=== PATIENT | male | born 1960 | race Caucasian/White ===

== ENCOUNTER 2016-10-22 16:21 | Inpatient (IN) | payer MEDICAID ==
[~2016-10-22] VITALS: Ht 170.2 cm; Wt 74.9 kg
[~2016-10-22 16:21] MED LIST: B-COTAB41 PO; PROP1TAB66 PO; PROT40TA PO
[2016-10-22 16:41] VITALS: BP 115/64; PULSE 95; RESP 14; TEMP 98.7; O2SAT 97
[2016-10-22 16:46] VITALS: BP 115/64; PULSE 97; RESP 16; TEMP 98.7; O2SAT 98
[2016-10-22] MEDS ORDERED: SODIUM CHLOR 0.9% 1000 ML INJ 1,000 ML IV SCH (16:48)
[2016-10-22] MEDS ORDERED: PROP10TA6 PO (16:49)
[2016-10-22 16:52] VITALS: O2SAT 98
[2016-10-22] MEDS ORDERED: SODIUM CHLORIDE 0.9% FLUSH 10 ML FLUSH IVF PRN (17:00)
[2016-10-22] MEDS ORDERED: PANTOPRAZOLE INJ 80 MG in SODIUM CHLORIDE 0.9% INJ 35 ML IV ONE (17:00)
[2016-10-22] MEDS ORDERED: OCTREOTIDE INJ 500 MCG in SODIUM CHLORID 0.9% 500 ML INJ 500 ML IV SCH (17:00)
[2016-10-22] MEDS ORDERED: PANTOPRAZOLE INJ 80 MG in SODIUM CHLORIDE 0.9% INJ 100 ML IV SCH (17:00)
[2016-10-22] MEDS ORDERED: ONDANSETRON HCL 4 MG/2 ML VIAL IVP ONE (17:00)
--- NOTE | 2016-10-22 17:01 | PD ---
HPI Chief Complaint: GI Complaint Time Seen by Provider: 16:55 Travel History International Travel<30 days: No Contact w/Intl Traveler<30days: No Traveled to known affect area: No History of Present Illness HPI Patient comes in complaining of hemoptysis, hematochezia, and melena that began 2 days ago. Patient has a history of similar secondary to esophageal varices. Patient states that he was feeling weak today while at work went home home and his found him passed out laying on the bedroom floor. Patient denies any headache, neck pain, chest pain, shortness of breath, numbness or tingling anywhere, loss of bowel or bladder, fevers, or back pain. Patient states he does get intermittent stabbing pain bilateral abdominal kunz. Patient states he is in between GI doctors is waiting to being seen one help get him treatment for hepatitis C. PFSH Past Medical History Arthritis: Yes Asthma: No Autoimmune Disease: Yes (PORPHYIA) Blood Disorders: Yes (PORPHYRIA, HEMOCHROMATOSIS) Anxiety: Yes Depression: No Heart Rhythm Problems: No Cancer: No Cardiovascular Problems: Yes High Cholesterol: No Chest Pain: Yes (OCCASIONAL - WAS NOT TREATED) Congestive Heart Failure: No Cirrhosis: Yes COPD: No Cerebrovascular Accident: No Diabetes: No Diminished Hearing: No Endocrine: No Gastrointestinal Disorders: Yes GERD: Yes Genitourinary: No Headaches: Yes (OCCASIONAL ) Hepatitis: Yes (HEP C) Hiatal Hernia: No Hypertension: Yes Immune Disorder: No Implanted Vascular Access Dvce: No Kidney Stones: No Musculoskeletal: Yes (bed right knee) Neurologic: Yes Psychiatric: Yes Reproductive: No Respiratory: Yes Immunizations Current: Yes Migraines: No Myocardial Infarction: No Renal Failure: No Seizures: No Sickle Cell Disease: No Sleep Apnea: No Thyroid Disease: No Ulcer: No Past Surgical History Abdominal Surgery: Yes (HERNIA REPAIR 5 weeks ago) AICD: No Arteriovenous Shunt: No Insulin Pump: No Joint Replacement: No Pacemaker: No Other Surgery: Yes Social History Alcohol Use: Yes (OCCASIONAL) Tobacco Use: Yes (1 1/2 PPD) Substance Use: No Allergies-Medications (Allergen,Severity, Reaction): Coded Allergies: *MDRO Multi-Drug Resistant Organism (Verified Adverse Reaction, Unknown, ) Patient reports history of MRSA MRSA PCR Screen positive 11/27/14. Reported Meds & Prescriptions Reported Meds & Active Scripts Active Reported Lisinopril 2.5 Mg Tab 2.5 Mg PO DAILY Propranolol (Propranolol HCl) 10 Mg Tab 10 Mg PO DAILY Review of Systems Except as stated in HPI: all other systems reviewed are Neg Physical Exam Narrative GENERAL: Well-developed, well nourished, in no acute distress, and non-ill appearing. SKIN: Focused skin assessment warm and dry. HEAD: Atraumatic. Normocephalic. EYES: Pupils equal and round. EOMI. No scleral icterus. No injection or drainage. ENT: No nasal bleeding or discharge. Mucous membranes pink and moist. NECK: Trachea midline. No JVD. Supple. No nuclear rigidity. CARDIOVASCULAR: Regular rate and rhythm. No murmur appreciated. RESPIRATORY: No accessory muscle use. No respiratory distress. Clear to auscultation. Breath sounds equal bilaterally. GASTROINTESTINAL: Abdomen soft, non-tender, nondistended, and no guarding. Hepatic and splenic margins not palpable. Normal bowel sounds 4. No pulsatile mass. MUSCULOSKELETAL: No obvious deformities. No clubbing. No cyanosis. No edema. Full range of motion. NEUROLOGICAL: Awake and alert. No obvious cranial nerve deficits. Motor grossly within normal limits. Normal speech. PSYCHIATRIC: Appropriate mood and affect; insight and judgment normal. Data Data Last Documented VS Vital Signs Date Time Temp Pulse Resp B/P Pulse Ox O2 Delivery O2 Flow Rate FiO2 10/22/16 16:52 98 Room Air 10/22/16 16:46 98.7 97 16 115/64 Orders Complete Blood Count With Diff (10/22/16 16:48) Comprehensive Metabolic Panel (10/22/16 16:48) Lipase (10/22/16 16:48) Prothrombin Time / Inr (Pt) (10/22/16 16:48) Act Partial Throm Time (Ptt) (10/22/16 16:48) Type And Screen (10/22/16 16:48) Chest, Single Ap (10/22/16 16:48) Ecg Monitoring (10/22/16 16:48) Iv Access Insert/Monitor (10/22/16 16:48) Oximetry (10/22/16 16:48) Ondansetron Inj (Zofran Inj) (10/22/16 17:00) Sodium Chlor 0.9% 1000 Ml Inj (Ns 1000 M (10/22/16 16:48) Sodium Chloride 0.9% Flush (Ns Flush) (10/22/16 17:00) Octreotide Inj (Sandostatin Inj) (10/22/16 17:00) Pantoprazole Inj (Protonix Inj) (10/22/16 17:00) Pantoprazole Inj (Protonix Inj) (10/22/16 17:00) Electrocardiogram (10/22/16 16:51) Ct Brain W/O Iv Contrast(Rout) (10/22/16 ) Ckmb (Isoenzyme) Profile (10/22/16 17:18) Troponin I (10/22/16 17:18) Comprehensive Metabolic Panel (10/23/16 06:00) Free Thyroxine (T4) (10/23/16 06:00) Hemoglobin (Hgb) A1c (10/23/16 06:00) Magnesium (Mg) (10/23/16 06:00) Phosphorus (Po4) (10/23/16 06:00) Thyroid Stimulating Hormone (10/23/16 06:00) Complete Blood Count With Diff (10/23/16 06:00) Propranolol (Inderal) (10/23/16 09:00) Admit Order (Ed Use Only) (10/22/16 18:38) CKMB (10/22/16 16:50) CKMB% (10/22/16 16:50) Labs Laboratory Tests Test 10/22/16 16:50 White Blood Count 6.8 TH/MM3 Red Blood Count 2.78 MIL/MM3 Hemoglobin 9.0 GM/DL Hematocrit 27.3 % Mean Corpuscular Volume 98.3 FL Mean Corpuscular Hemoglobin 32.5 PG Mean Corpuscular Hemoglobin 33.0 % Concent Red Cell Distribution Width 15.1 % Platelet Count 78 TH/MM3 Mean Platelet Volume 9.0 FL Neutrophils (%) (Auto) 69.6 % Lymphocytes (%) (Auto) 15.0 % Monocytes (%) (Auto) 12.0 % Eosinophils (%) (Auto) 2.7 % Basophils (%) (Auto) 0.7 % Neutrophils # (Auto) 4.7 TH/MM3 Lymphocytes # (Auto) 1.0 TH/MM3 Monocytes # (Auto) 0.8 TH/MM3 Eosinophils # (Auto) 0.2 TH/MM3 Basophils # (Auto) 0.0 TH/MM3 CBC Comment AUTO DIFF Differential Comment AUTO DIFF CONFIRMED Prothrombin Time 13.6 SEC Prothromb Time International 1.2 RATIO Ratio Activated Partial 25.4 SEC Thromboplast Time Sodium Level 139 MEQ/L Potassium Level 3.6 MEQ/L Chloride Level 110 MEQ/L Carbon Dioxide Level 26.2 MEQ/L Anion Gap 3 MEQ/L Blood Urea Nitrogen 14 MG/DL Creatinine 0.76 MG/DL Estimat Glomerular Filtration 106 ML/MIN Rate Random Glucose 136 MG/DL Calcium Level 6.9 MG/DL Protein Corrected Calcium 7.6 MG/DL Total Bilirubin 0.8 MG/DL Aspartate Amino Transf 44 U/L (AST/SGOT) Alanine Aminotransferase 42 U/L (ALT/SGPT) Alkaline Phosphatase 59 U/L Total Creatine Kinase 115 U/L Creatine Kinase MB 0.6 NG/ML Troponin I LESS THAN 0.02 NG/ML Total Protein 5.8 GM/DL Albumin 2.1 GM/DL Lipase 285 U/L Blood Type B POSITIVE Antibody Screen NEGATIVE MDM Medical Decision Making Medical Screen Exam Complete: Yes Emergency Medical Condition: Yes Interpretation(s) Chest x-ray read by the radiologist shows: No acute cardiopulmonary findings. CT head read by the radiologist shows: No acute intracranial abnormality. EKG reviewed by Dr. Rodas shows sinus rhythm with a ventricular rate of 86. No STEMI. Differential Diagnosis Upper GI bleed, lower GI bleed, anemia, electrolyte abnormality, closed head injury, intracranial hemorrhage, other Narrative Course Patient was seen and examined. IV was established patient was placed on music leader. Initial laboratory and radiological studies were obtained and reviewed. Patient was started on Protonix drip and given a dose of octreotide. Discussed patient with Dr. Rodas, who is in agreement with plan of care and disposition. Discussed all findings and plan care with patient who is agreeable for admission. All questions were answered. Patient remained stable throughout ED course. Discussed patient with hospitalist who is agreeable to admit the patient. HemaPrompt Point of Care Internal Pos. & Neg. Controls: Passed Fecal Specimen Occult Blood: Positive Comment Verbal consent was obtained. Digital rectal exam was performed. Stool specimen applied and test interpreted between 1 and 3 minutes of application and the result was positive. Internal Controls: Both positive and negative controls were validated. nitrating acid mixer Rebeca was present during this exam. Physician Communication Physician Communication [id number] Wang, who is agreeable to admit the patient. Diagnosis Primary Impression: GI bleed Qualified Code: K92.2 - Gastrointestinal hemorrhage, unspecified gastrointestinal hemorrhage type Additional Impression: Syncope Qualified Code: R55 - Syncope, unspecified syncope type Admitting Information Admitting Physician Requests: Admit Condition: Stable Bijan Adam Oct 22, 2016 17:01
--- NOTE | 2016-10-22 17:15 | RADRPT ---
EXAM DATE/TIME: 10/22/2016 17:02 [facility] COMPARISON: CHEST SINGLE AP, November 28, 2013, 19:39. INDICATIONS : Vomiting, internal bleeding. MEDICAL HISTORY : None. SURGICAL HISTORY : None. ENCOUNTER: Initial ACUITY: 1 day PAIN SCORE: 2/10 LOCATION: Bilateral chest FINDINGS: A single view of the chest demonstrates the lungs to be symmetrically aerated without evidence of mas s, infiltrate or effusion. The cardiomediastinal contours are unremarkable. Osseous structures are intact. CONCLUSION: 1. No acute cardiopulmonary findings. Germain Nolasco MD on October 22, 2016 at 17:13 Board Certified Radiologist. This report was verified electronically.
[2016-10-22 17:23] LABS: AUTOMATED NEUTROPHIL # 4.7 TH/MM3 (1.8-7.7); BASOPHIL % 0.7 % (0.0-2.0); EOSINOPHIL # 0.2 TH/MM3 (0-0.4); EOSINOPHIL % 2.7 % (0.0-4.0); HEMATOCRIT 27.3 % (39.0-51.0); MEAN CELL VOLUME 98.3 FL (80.0-100.0); MEAN CORPUSCULAR HEMOGLOBIN 32.5 PG (27.0-34.0); NEUT % 69.6 % (16.0-70.0); RED BLOOD COUNT 2.78 MIL/MM3 (4.50-5.90); RED CELL DISTRIBUTION WIDTH 15.1 % (11.6-17.2); WHITE BLOOD COUNT 6.8 TH/MM3 (4.0-11.0)
[2016-10-22 17:28] LABS: APTT (PATIENT) 25.4 SEC (24.3-30.1); INTERNATIONAL NORMALIZED RATIO 1.2 RATIO; PROTHROMBIN TIME - PATIENT 13.6 SEC (9.8-11.6)
--- NOTE | 2016-10-22 17:33 | RADRPT ---
EXAM DATE/TIME: 10/22/2016 17:24 [facility] COMPARISON: CT BRAIN W/O CONTRAST, December 23, 2009, 14:24. INDICATIONS : Dizziness past 3 days. RADIATION DOSE: 48.72 CTDIvol (mGy) MEDICAL HISTORY : Cardiovascular disease. Hypertension. Hepatitis C.Cirrhosis SURGICAL HISTORY : None. ENCOUNTER: Initial ACUITY: 3 days PAIN SCALE: 0/10 LOCATION: cranial TECHNIQUE: Multiple contiguous axial images were obtained of the head. Using automated exposure control and adj ustment of the mA and/or kV according to patient size, radiation dose was kept as low as reasonably a chievable to obtain optimal diagnostic quality images. DICOM format image data is available electro nically for review and comparison. FINDINGS: CEREBRUM: The ventricles are normal for age. No evidence of midline shift, mass lesion, hemorrhage or acute in farction. No extra-axial fluid collections are seen. POSTERIOR FOSSA: The cerebellum and brainstem are intact. The 4th ventricle is midline. The cerebellopontine angle i s unremarkable. EXTRACRANIAL: The visualized portion of the orbits is intact. SKULL: The calvaria is intact. No evidence of skull fracture. CONCLUSION: 1. No acute intracranial abnormality. Germain Nolasco MD on October 22, 2016 at 17:31 Board Certified Radiologist. This report was verified electronically.
[2016-10-22 17:34] LABS: HEMO FLAGS AUTO DIFF
[2016-10-22 17:41] LABS: BICARBONATE 26.2 MEQ/L (21.0-32.0); CALCIUM-PROTEIN CORRECTED 7.6 MG/DL (8.5-10.1); POTASSIUM 3.6 MEQ/L (3.5-5.1); TOTAL BILIRUBIN ADULT 0.8 MG/DL (0.2-1.0)
[2016-10-22 18:11] LABS: PLATELET COUNT 78 TH/MM3 (150-450)
[2016-10-22 18:12] LABS: SCAN/DIFF AUTO DIFF CONFIRMED
[2016-10-22] MEDS ORDERED: LISI2.5T3 PO (18:30)
[2016-10-22] MEDS ORDERED: LORazepam 2 MG/ML VIAL IV PUSH PRN ×8 (18:45)
[2016-10-22] MEDS ORDERED: traMADol HCL 50 MG TAB PO PRN ×2 (18:45)
[2016-10-22] MEDS ORDERED: PROCHLORPERAZINE 25 MG SUPP RECTAL PRN (18:45)
[2016-10-22] MEDS ORDERED: cloNIDine HCL 0.1 MG TAB PO PRN (18:45)
[2016-10-22] MEDS ORDERED: LORazepam 1 MG TAB PO PRN ×2 (18:45)
[2016-10-22] MEDS ORDERED: THIAMINE INJ 100 MG in SODIUM CHLORIDE 0.9% INJ 100 ML IV SCH (18:45)
[2016-10-22] MEDS ORDERED: ONDANSETRON HCL 4 MG/2 ML VIAL IVP PRN (18:45)
[2016-10-22] MEDS ORDERED: METOCLOPRAMIDE HCL 10 MG/2 ML VIAL IV PUSH PRN (18:45)
[2016-10-22] MEDS ORDERED: LORazepam 2 MG TAB PO PRN ×2 (18:45)
[2016-10-22] MEDS ORDERED: MORPHINE SULFATE 4 MG/ML INJ IV PRN ×2 (18:45)
[2016-10-22] MEDS ORDERED: ACETAMINOPHEN 325 MG TAB PO PRN ×2 (18:45)
[2016-10-22] MEDS ORDERED: BISACODYL 10 MG SUPP RECTAL PRN (18:45)
[2016-10-22] MEDS ORDERED: MAGNESIUM HYDROXIDE SUSP 30 ML CUP PO PRN (18:45)
[2016-10-22] MEDS ORDERED: SODIUM CHLORIDE 0.9% FLUSH 10 ML FLUSH IV FLUSH PRN ×3 (18:45)
[2016-10-22] MEDS ORDERED: FLUMAZENIL 0.5 MG/5 ML VIAL IV PUSH PRN ×2 (18:45)
[2016-10-22] MEDS ORDERED: LACTULOSE SYRUP 20 GM/30 ML CUP PO PRN (18:45)
[2016-10-22] MEDS ORDERED: ONDANSETRON HCL 4 MG/2 ML VIAL IV PRN ×2 (18:45)
[2016-10-22] MEDS ORDERED: SENNOSIDES 8.6 MG TAB PO PRN (18:45)
[2016-10-22] MEDS ORDERED: NALOXONE HCL 0.4 MG/ML AMP IV PRN (18:45)
[2016-10-22 18:58] LABS: CREATINE KINASE 115 U/L (39-308)
[2016-10-22 19:11] LABS: CKMB 0.6 NG/ML (0.5-3.6)
--- NOTE | 2016-10-22 19:23 | HHI.HP ---
HPI Service [facility] Primary Care Physician Suraj Juárez DO Admission Diagnosis GI bleed, syncope Diagnoses: (1) GI bleed Diagnosis: Principal (2) Syncope Diagnosis: Principal (3) Thrombocytopenia Diagnosis: Principal (4) Hypocalcemia Diagnosis: Principal (5) Anemia Diagnosis: Principal (6) Alcohol abuse Diagnosis: Principal (7) Tobacco use Diagnosis: Principal Travel History International Travel<30 Days: No Contact w/Intl Traveler <30 Da: No Traveled to Known Affected Are: No History of Present Illness This is a 56-year-old male with a PMH of HTN, Anxiety, Hemochromatosis, Hepatitis C, Cirrhosis, Alcohol Abuse, h/o GI Bleed s/p Esophageal Banding and Tobacco Abuse who was brought to the ER by EMS secondary to complaints of hematemesis with subsequent syncopal episode. Per patient has been feeling unwell x2 days w/ nausea/vomiting, today had episode of hematemesis followed by lightheadedness/dizziness and syncope. Previous admit 01/10-01/13/15 for Hematemesis, s/p EGD 01/13/[address] Miles w/ Esophageal Banding. On arrival , BP 115/64, HR 95, O2 sat 97% on RA, Afebrile. CBC essentially at baseline. Hemoglobin 9.0, previously 8.8 and 01/13/15. Platelets 78, previously 68 on 01/13. Calcium 6.9. Troponin negative. LFTs essentially unremarkable. Lipase normal. INR 1.2. CT Head with no acute findings. CXR negative. Hemoccult positive. GI Consulted by ER physician, currently on Protonix and Octreotide gtt in ER. Review of Systems Except as stated in HPI: all other systems reviewed are Neg ROS: 14 point review of systems otherwise negative. Past Family Social History Past Medical History PMH: HTN, Anxiety, Hemochromatosis, Hepatitis C, Cirrhosis, Alcohol Abuse, h/o GI Bleed s/p Esophageal Banding and Tobacco Abuse Past Surgical History PAST SURGICAL HISTORY: Hernia Repair Allergies: Coded Allergies: *MDRO Multi-Drug Resistant Organism (Verified Adverse Reaction, Unknown, ) Patient reports history of MRSA MRSA PCR Screen positive 11/27/14. Family History PAST FAMILY HISTORY: Reviewed. No h/o DM or CAD Social History PAST SOCIAL HISTORY: Occasional alcohol. Smokes 1-2ppd. Negative for drugs. Physical Exam Vital Signs Vital Signs Date Time Temp Pulse Resp B/P Pulse Ox O2 Delivery O2 Flow Rate FiO2 10/22/16 16:52 98 Room Air 10/22/16 16:46 98.7 97 16 115/64 98 Room Air 10/22/16 16:41 98.7 95 14 115/64 97 Physical Exam PE: GENERAL: Middle-aged male in no acute distress. HEENT: PERRLA, EOMI. No scleral icterus or conjunctival pallor. No lid lag or facial droop. CARDIOVASCULAR: Regular rate and rhythm. No obvious murmurs to auscultation. No chest tenderness to palpation. RESPIRATORY: No obvious rhonchi or wheezing. Clear to auscultation. Breath sounds equal bilaterally. GASTROINTESTINAL: Abdomen soft, non-tender, nondistended. BS normal. MUSCULOSKELETAL: Extremities without clubbing, cyanosis, or edema. No obvious deformities. NEUROLOGICAL: Awake, alert and oriented x4. No focal neurologic deficits. Moving both upper and lower extremities spontaneously. Laboratory Laboratory Tests Test 10/22/16 16:50 White Blood Count 6.8 Red Blood Count 2.78 Hemoglobin 9.0 Hematocrit 27.3 Mean Corpuscular Volume 98.3 Mean Corpuscular Hemoglobin 32.5 Mean Corpuscular Hemoglobin 33.0 Concent Red Cell Distribution Width 15.1 Platelet Count 78 Mean Platelet Volume 9.0 Neutrophils (%) (Auto) 69.6 Lymphocytes (%) (Auto) 15.0 Monocytes (%) (Auto) 12.0 Eosinophils (%) (Auto) 2.7 Basophils (%) (Auto) 0.7 Neutrophils # (Auto) 4.7 Lymphocytes # (Auto) 1.0 Monocytes # (Auto) 0.8 Eosinophils # (Auto) 0.2 Basophils # (Auto) 0.0 CBC Comment AUTO DIFF Differential Comment AUTO DIFF CONFIRMED Prothrombin Time 13.6 Prothromb Time International 1.2 Ratio Activated Partial 25.4 Thromboplast Time Sodium Level 139 Potassium Level 3.6 Chloride Level 110 Carbon Dioxide Level 26.2 Anion Gap 3 Blood Urea Nitrogen 14 Creatinine 0.76 Estimat Glomerular Filtration 106 Rate Random Glucose 136 Calcium Level 6.9 Protein Corrected Calcium 7.6 Total Bilirubin 0.8 Aspartate Amino Transf 44 (AST/SGOT) Alanine Aminotransferase 42 (ALT/SGPT) Alkaline Phosphatase 59 Total Creatine Kinase 115 Creatine Kinase MB 0.6 Troponin I LESS THAN 0.02 Total Protein 5.8 Albumin 2.1 Lipase 285 Blood Type B POSITIVE Antibody Screen NEGATIVE Result Diagram: 10/22/16164910/22/161649 Assessment and Plan Problem List: (1) GI bleed ICD Code: K92.2 Status: Acute (2) Syncope ICD Code: R55 Status: Acute (3) Thrombocytopenia ICD Code: D69.6 Status: Chronic (4) Anemia ICD Code: D64.9 Status: Acute (5) Hypocalcemia ICD Code: E83.51 Status: Acute (6) Alcohol abuse ICD Code: F10.10 Status: Acute (7) Tobacco use ICD Code: Z72.0 Status: Chronic Assessment and Plan A/P: 1. GI Bleed: h/o Hep C, Alcohol Abuse, Cirrhosis and Esophageal Varices w/ previous banding 01/13/15, reports multiple episodes of hematemesis, +Hemoccult on exam. Hgb stable at 9.0, vitals normal. Currently on Octreotide/Protonix gtt in ER, GI Consulted by ER physician, will eval. Check Hgb/Hct, transfuse as needed. 2. Anemia: Hgb 9.0, stable in comparison to previous labs from 01/2015. Recheck Hgb/Hct and transfuse as needed. 3. Thrombocytopenia: Stable. Platelets 78, previously 68 on 01/13/15. Will monitor. 4. Syncope: Likely vasovagal following hematemesis. CT Head w/ no acute findings, CXR negative, images reviewed by me. Trop negative, EKG w/ no acute ischemia. Will monitor, IVF for hydration. 5. Hypocalcemia: Ca 6.9, will replace and recheck in am. 6. Alcohol Abuse: CIWA, Seizure Precautions, MVT/Thiamine/Folate 7. Tobacco Abuse: Pt counselled, Ativan/NicoDerm prn. 8. DVT Prophylaxis: Pharmacologic contraindication secondary to GI Bleed 9. Social work for d/c planning as needed. 10. Case discussed w/ ER physician at length. Physician Certification 2 Midnight Certification Type: Admission for Inpatient Services Order for Inpatient Services The services are ordered in accordance with Medicare regulations or non- Medicare payer requirements, as applicable. In the case of services not specified as inpatient-only, they are appropriately provided as inpatient services in accordance with the 2-midnight benchmark. Estimated LOS (days): 2 days is the estimated time the patient will need to remain in the hospital, assuming treatment plan goals are met and no additional complications. Post-Hospital Plan: Not yet determined Problem Qualifiers (1) GI bleed: Qualified Code: K92.2 - Gastrointestinal hemorrhage, unspecified gastrointestinal hemorrhage type (2) Syncope: Qualified Code: R55 - Syncope, unspecified syncope type Catie Riley MD Oct 22, 2016 19:23
[2016-10-22] MEDS ORDERED: CALCIUM GLUCONATE 10% 1 GM/10 ML VIAL IV PUSH ONE (20:30)
[2016-10-22] MEDS ORDERED: CALCIUM GLUCONATE INJ 1 GM in SODIUM CHLORIDE 0.9% INJ 100 ML IV ONE (20:45)
[2016-10-22] MEDS ORDERED: SODIUM CHLORIDE 0.9% FLUSH 10 ML FLUSH IV FLUSH SCH ×2 (21:00)
[2016-10-22] MEDS: SODIUM CHLORIDE 0.9% FLUSH 10 ML FLUSH IV FLUSH SCH (21:44)
[2016-10-22] MEDS: cefTRIAXone INJ 1,000 MG in SODIUM CHLORIDE 0.9% INJ 100 ML IV SCH (21:44)
[2016-10-22 21:46] VITALS: BP 112/67; PULSE 87; RESP 18; O2SAT 96
[2016-10-22] MEDS: DOCUSATE SODIUM 50 MG/SENNA 8.6 MG TAB PO SCH (22:58)
[2016-10-22] MEDS: MULTIVITAMIN INJ 10 ML, FOLIC ACID INJ 1 MG in SODIUM CHLORID 0.9% 500 ML INJ 500 ML IV SCH (22:59)
[2016-10-22] MEDS: THIAMINE INJ 500 MG in SODIUM CHLOR 0.9% 250 ML INJ 250 ML IV SCH (22:59)
[2016-10-22] MEDS: SODIUM CHLOR 0.9% 1000 ML INJ 1,000 ML IV SCH (22:59)
[2016-10-22 23:10] VITALS: PULSE 89
[2016-10-22 23:52] VITALS: BP 116/68; PULSE 85; RESP 16; TEMP 99; O2SAT 97
[2016-10-23] VITALS (8 sets, daily range): BP systolic 115–154; BP diastolic 68–82; PULSE 55–94; RESP 16–18; TEMP 95.9–98.1; O2SAT 96–100
[2016-10-23 00:07] LABS: HEMATOCRIT 23.6 % (39.0-51.0)
[2016-10-23 00:11] LABS: REVIEW FLAG FINAL
[2016-10-23 00:31] LABS: CREATINE KINASE 124 U/L (39-308)
[2016-10-23] MEDS: PANTOPRAZOLE INJ 80 MG in SODIUM CHLORIDE 0.9% INJ 100 ML IV SCH ×2 (03:32→12:24)
[2016-10-23] MEDS: SODIUM CHLOR 0.9% 1000 ML INJ 1,000 ML IV SCH ×2 (03:33→21:44)
[2016-10-23] MEDS: OCTREOTIDE INJ 500 MCG in SODIUM CHLORID 0.9% 500 ML INJ 499.5 ML IV SCH (03:33)
[2016-10-23] MEDS: THIAMINE INJ 500 MG in SODIUM CHLOR 0.9% 250 ML INJ 250 ML IV SCH ×3 (03:54→21:42)
[2016-10-23 06:27] LABS: AUTOMATED NEUTROPHIL # 3.7 TH/MM3 (1.8-7.7); BASOPHIL % 0.6 % (0.0-2.0); EOSINOPHIL # 0.2 TH/MM3 (0-0.4); EOSINOPHIL % 3.9 % (0.0-4.0); LYMPHOCYTE # 1.2 TH/MM3 (1.0-4.8); MEAN CELL VOLUME 97.6 FL (80.0-100.0); MEAN CORPUSCULAR HEMOGLOBIN 32.9 PG (27.0-34.0); MEAN CORPUSCULAR HGB CONC 33.7 % (32.0-36.0); MONO % 9.8 % (0.0-8.0); NEUT % 64.7 % (16.0-70.0); PLATELET COUNT 59 TH/MM3 (150-450); RED BLOOD COUNT 2.36 MIL/MM3 (4.50-5.90); RED CELL DISTRIBUTION WIDTH 14.8 % (11.6-17.2); WHITE BLOOD COUNT 5.8 TH/MM3 (4.0-11.0)
[2016-10-23 06:37] LABS: HEMO FLAGS AUTO DIFF; INTERNATIONAL NORMALIZED RATIO 1.2 RATIO; PROTHROMBIN TIME - PATIENT 13.1 SEC (9.8-11.6)
[2016-10-23 06:56] LABS: ALT (GPT) 40 U/L (12-78); AST (GOT) 46 U/L (15-37); MAGNESIUM 1.8 MG/DL (1.5-2.5)
[2016-10-23 07:05] LABS: ALKALINE PHOSPHATASE 52 U/L (45-117); CREATINE KINASE 153 U/L (39-308); FREE T4 1.04 NG/DL (0.76-1.46); INDIRECT BILIRUBIN 0.5 MG/DL (0.0-0.8)
[2016-10-23] MEDS: PROPRANOLOL HCL 10 MG TAB PO SCH (07:55)
[2016-10-23] MEDS: DOCUSATE SODIUM 50 MG/SENNA 8.6 MG TAB PO SCH ×2 (07:57→21:47)
[2016-10-23] MEDS: SODIUM CHLORIDE 0.9% FLUSH 10 ML FLUSH IV FLUSH SCH ×2 (07:57→21:47)
[2016-10-23 08:18] LABS: PLATELET ESTIMATE SMEAR LOW (NORMAL); PLATELET MORPHOLOGY NORMAL (NORMAL); SCAN/DIFF AUTO DIFF CONFIRMED
--- NOTE | 2016-10-23 10:57 | PD.CONS ---
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 He reports that he started having hematemesis on Tuesday, vomiting a small amount of red blood. He reports that he also had a couple episodes and 1 episode on Tuesday and therefore came to the ER for further evaluation. He denies any abdominal pain or heartburn/reflux. He does report that he started having black tarry stools yesterday. He drinks alcohol occasionally and states that he did have 3 beers on Tuesday. He does not take any aspirin, ibuprofen or other NSAIDs. He was diagnosed with liver cirrhosis about 3-4 years ago and reports that he has never had treatment for his hepatitis C. He last had an endoscopy with band ligation (01/13/15) and this revealed medium esophageal varices distal esophagus, portal hypertensive gastropathy was found in the entire examined stomach, retroflex views revealed small extension of esophageal varices and of the cardia and fundus. The plan was for repeat EGD with banding in 4 weeks. He is not on any PPIs, but does take propranolol at home. (Janay Pearson) PFSH Past Medical History HTN Anxiety Hemochromatosis Hepatitis C, Tx naive Liver Cirrhosis Alcohol Abuse Hx GIB Esophageal varices Portal gastropathy Past Surgical History EGD Hernia Repair (Janay Pearson) Coded Allergies: *MDRO Multi-Drug Resistant Organism (Verified Adverse Reaction, Unknown, ) Patient reports history of MRSA MRSA PCR Screen positive 11/27/14. Medications Allergies Coded Allergies Type Severity Reaction Last Updated Verified *MDRO Multi-Drug Resistant Organism Adverse Reaction Unknown 10/22/16 Yes Active Scripts Medications Dose Route/Sig Days Date Category Lisinopril 2.5 Mg Tab 2.5 Mg PO DAILY 10/22/16 Reported Propranolol (Propranolol HCl) 10 Mg Tab 10 Mg PO DAILY 10/22/16 Reported Family History Mother had breast cancer. Social History Occasional alcohol- did have 3 beers on Tuesday Smokes 1.5 PPD No illicit drug use (Janay Pearson) Review of Systems Constitutional: COMPLAINS OF: Fatigue, DENIES: Fever, Weight loss, Chills Respiratory: COMPLAINS OF: Cough, Wheezing, Sputum production Cardiovascular: DENIES: Chest pain Gastrointestinal: COMPLAINS OF: Black stools, Nausea, Vomiting, Hematemesis, DENIES: Abdominal pain, Bloody stools, Constipation, Diarrhea, Anorexia, Heartburn Integumentary: DENIES: Abnormal pigmentation, Rash Hematologic/lymphatic: COMPLAINS OF: Bruising Neurologic: DENIES: Headache Psychiatric: DENIES: Confusion (PearsonJanay) GI Exam Vitals I&O Vital Signs Date Time Temp Pulse Resp B/P Pulse Ox O2 Delivery O2 Flow Rate FiO2 10/23/16 08:00 98.1 71 18 115/68 100 10/23/16 04:00 98.0 94 16 121/76 96 10/22/16 23:52 99.0 85 16 116/68 97 10/22/16 23:10 89 10/22/16 21:46 87 18 112/67 96 Room Air 10/22/16 16:52 98 Room Air 10/22/16 16:46 98.7 97 16 115/64 98 Room Air 10/22/16 16:41 98.7 95 14 115/64 97 I/O 10/22/16 10/22/16 10/22/16 10/23/16 10/23/16 10/23/16 06:59 14:59 22:59 06:59 14:59 22:59 Intake Total 2182 ml Balance 2182 ml Intake Oral 0 ml IV Total 2182 ml # Voids 1 # Bowel Movements 1 Imaging Last Impressions Chest X-Ray 10/22/16 1648 Signed Impressions: Service Date/Time: Saturday, October 22, 2016 17:02 - CONCLUSION: 1. No acute cardiopulmonary findings. Germain Nolasco MD Head CT 10/22/16 0000 Signed Impressions: Service Date/Time: Saturday, October 22, 2016 17:24 - CONCLUSION: 1. No acute intracranial abnormality. Germain Nolasco MD Laboratory Test 10/22/16 10/22/16 10/22/16 10/23/16 16:50 22:15 23:56 05:52 White Blood Count 6.8 TH/MM3 5.8 TH/MM3 Red Blood Count 2.78 MIL/MM3 2.36 MIL/MM3 Hemoglobin 9.0 GM/DL 7.8 GM/DL 7.7 GM/DL Hematocrit 27.3 % 23.6 % 23.0 % Mean Corpuscular Volume 98.3 FL 97.6 FL Mean Corpuscular Hemoglobin 32.5 PG 32.9 PG Mean Corpuscular Hemoglobin 33.0 % 33.7 % Concent Red Cell Distribution Width 15.1 % 14.8 % Platelet Count 78 TH/MM3 59 TH/MM3 Mean Platelet Volume 9.0 FL 9.3 FL Neutrophils (%) (Auto) 69.6 % 64.7 % Lymphocytes (%) (Auto) 15.0 % 21.0 % Monocytes (%) (Auto) 12.0 % 9.8 % Eosinophils (%) (Auto) 2.7 % 3.9 % Basophils (%) (Auto) 0.7 % 0.6 % Neutrophils # (Auto) 4.7 TH/MM3 3.7 TH/MM3 Lymphocytes # (Auto) 1.0 TH/MM3 1.2 TH/MM3 Monocytes # (Auto) 0.8 TH/MM3 0.6 TH/MM3 Eosinophils # (Auto) 0.2 TH/MM3 0.2 TH/MM3 Basophils # (Auto) 0.0 TH/MM3 0.0 TH/MM3 CBC Comment AUTO DIFF AUTO DIFF Differential Comment AUTO DIFF AUTO DIFF CONFIRMED CONFIRMED Prothrombin Time 13.6 SEC 13.1 SEC Prothromb Time International 1.2 RATIO 1.2 RATIO Ratio Activated Partial 25.4 SEC Thromboplast Time Sodium Level 139 MEQ/L Potassium Level 3.6 MEQ/L Chloride Level 110 MEQ/L Carbon Dioxide Level 26.2 MEQ/L Anion Gap 3 MEQ/L Blood Urea Nitrogen 14 MG/DL Creatinine 0.76 MG/DL Estimat Glomerular Filtration 106 ML/MIN Rate Random Glucose 136 MG/DL Calcium Level 6.9 MG/DL Protein Corrected Calcium 7.6 MG/DL Total Bilirubin 0.8 MG/DL 1.0 MG/DL Aspartate Amino Transf 44 U/L 46 U/L (AST/SGOT) Alanine Aminotransferase 42 U/L 40 U/L (ALT/SGPT) Alkaline Phosphatase 59 U/L 52 U/L Total Creatine Kinase 115 U/L 124 U/L 153 U/L Creatine Kinase MB 0.6 NG/ML Troponin I LESS THAN 0.02 LESS THAN 0.02 LESS THAN 0.02 NG/ML NG/ML NG/ML Total Protein 5.8 GM/DL 5.6 GM/DL Albumin 2.1 GM/DL 2.2 GM/DL Lipase 285 U/L Blood Type B POSITIVE Antibody Screen NEGATIVE Urine Opiates Screen NEG Urine Barbiturates Screen NEG Urine Amphetamines Screen NEG Urine Benzodiazepines Screen NEG Urine Cocaine Screen NEG Urine Cannabinoids Screen NEG Platelet Estimate LOW Platelet Morphology Comment NORMAL Red Cell Morphology Comment NORMAL Fibrinogen 121 mg/dL Phosphorus Level 2.3 MG/DL Magnesium Level 1.8 MG/DL Direct Bilirubin 0.5 MG/DL Indirect Bilirubin 0.5 MG/DL Free Thyroxine 1.04 NG/DL Thyroid Stimulating Hormone 0.328 uIU/ML 3rd Gen Physical Examination HEENT: Normocephalic; atraumatic; no jaundice. CHEST: CTA, Expiratory wheezing, cough CARDIAC: RRR. ABDOMEN: Soft, nondistended, nontender; no hepatosplenomegaly; bowel sounds are present in all four quadrants. EXTREMITIES: No clubbing, cyanosis, or edema. SKIN: Normal; no rash; no jaundice. 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 (Janay Pearson) Assessment and Plan Plan ASSESSMENT: - Upper GIB with hematemesis. Has been having intermittent hematemesis since Tuesday. Has hx of GIB r/t esophageal varices. Last EGD with band ligation ( 01/13/15)---> this revealed medium esophageal varices distal esophagus, portal hypertensive gastropathy was found in the entire examined stomach, retroflex views revealed small extension of esophageal varices and of the cardia and fundus. The plan was for repeat EGD with banding in 4 weeks. He is not on any PPIs, but does take propranolol at home. HH dropped from 9.0/27.3----> 7.7/23.0. NPO. Protonix/Octreotide Gtt. Plan for egd with possible band ligation today. - Anemia secondary to acute blood loss. 9.0/27.3----> 7.7/23.0. - Esophageal varices, portal gastropathy. Protonix gtt, Octreotide. Propranolol, rate 71 - Liver cirrhosis secondary to ETOH, Hemochromatosis, HCV. Dx 3-4 years ago. States he drinks occasionally, did have 3 beers on Tuesday. T. Bili 1.0, AST 46 , ALT 40, Alk phosph 153. - Hemochromatosis. Ferritin level, Iron studies. - Chronic hepatitis C, Tx naive. Still drinking ETOH. Not a candidate for tx until he has been ETOH free x 6 months. - Wheezing, coughing. Pt reports hx of COPD per attending - HTN, Anxiety per attending. PLAN: - Plan for EGD with possible band ligation - Obtain consents - NPO - Protonix Gtt - Octreotide Gtt - Propranolol - Ferritin - Iron studies - CBC, BMP in am - Complete ETOH cessation - Further recommendations to follow based on results of above - Pt seen and examined by Dr. Glasgow and myself and this note is written on his behalf (Janay Pearson) Physician Comments Seen and examined, plan discussed with the patient and his . Risk, benefits and possible complications discussed with the patient, will proceed with EGD / banding today. Management plan otherwise as above. Further recommendations to follow. (Dionisio Glasgow MD) Janay Pearson Oct 23, 2016 10:57 Dionisio Glasgow MD Oct 23, 2016 11:54
[2016-10-23] MEDS ORDERED: RESP: ALBUTEROL 2.5 MG/IPRATROPIUM 0.5 MG NEB (SCH) NEB ONE (12:00)
[2016-10-23 12:17] LABS: TRANSFERRIN IRON PROFILE 241 MG/DL (200-360)
[2016-10-23 12:20] LABS: FERRITIN 22 NG/ML (26-388)
[2016-10-23 13:54] LABS: HEMOGLOBIN A1b 0.6 %; HEMOGLOBIN Ao 85.9 %; HEMOGLOBIN F 1.3 %; HEMOGLOBIN LA1C 1.8 %; HEMOGLOBIN P3 3.2 %
[2016-10-23] MEDS ORDERED: PROPOFOL 200 MG/20 ML AMP IV ONE (14:54)
[2016-10-23] MEDS ORDERED: DO NOT ADM ANY ANTICOAGULANT DRUGS PRN ×2 (15:11→16:30)
--- NOTE | 2016-10-23 15:48 | EKG ---
Date Performed: 10/22/2016 Time Performed: 17:42:51 PTAGE: 56 years EKG: Sinus rhythm WITH SHORT NM INTERVAL Compared to prior tracing no significant change BORDERLINE ECG PREVIOUS TRACING : 10/22/2016 17.42 DOCTOR: Osmin Bustillo Interpretating Date/Time 10/25/2016 07:55:42
--- NOTE | 2016-10-23 19:24 | HHI.PR ---
Subjective Remarks tolerated EGD well, denies n/v afterwards. Objective Vital Signs Date Time Temp Pulse Resp B/P Pulse Ox O2 Delivery O2 Flow Rate FiO2 10/23/16 16:00 96.7 55 18 135/74 98 10/23/16 15:40 97.3 57 14 125/67 100 Nasal Cannula 2 10/23/16 15:30 53 14 112/64 100 Nasal Cannula 2 10/23/16 15:15 58 14 92/58 100 Nasal Cannula 4 10/23/16 15:12 97.3 59 14 98/60 99 Nasal Cannula 4 10/23/16 12:31 98 21 10/23/16 12:11 95.9 68 18 126/72 99 10/23/16 08:00 98.1 71 18 115/68 100 10/23/16 07:35 71 10/23/16 04:00 98.0 94 16 121/76 96 10/22/16 23:52 99.0 85 16 116/68 97 10/22/16 23:10 89 10/22/16 21:46 87 18 112/67 96 Room Air I/O 10/22/16 10/22/16 10/22/16 10/23/16 10/23/16 10/23/16 07:00 15:00 23:00 07:00 15:00 23:00 Intake Total 2182 ml 300 ml Output Total 1600 ml Balance 2182 ml -1600 ml 300 ml Intake Oral 0 ml IV Total 2182 ml Other 300 ml Output Urine Total 1600 ml # Voids 1 # Bowel Movements 1 Result Diagram: 10/23/16 0552 10/22/16 1650 Objective Remarks GENERAL: NAD, sleeping in bed, easily awoken CARDIOVASCULAR: Regular rate and rhythm without murmurs, gallops, or rubs. RESPIRATORY: Breath sounds equal and clear bilaterally. Unlabored breathing GASTROINTESTINAL: Abdomen soft, non-tender, nondistended. MUSCULOSKELETAL: No cyanosis, or edema. A/P Assessment and Plan A/P - Upper GI bleed likely 2/2 varices - stable post EGD today, awaiting results/ report. protonix and octretide drips, propranolol - appreciate GI assistance - Anemia secondary to acute blood loss. 9.0/27.3----> 7.7/23.0. Will need to repeat in AM to ensure for stabilization - Esophageal varices, portal gastropathy. - Liver cirrhosis secondary to ETOH, Hemochromatosis, HCV. - Hemochromatosis. Ferritin level, Iron studies. - Chronic hepatitis C, Tx naive. - ETOH dependence - will start librium - HTN, Surya Montero MD Oct 23, 2016 19:24
[2016-10-23 20:44] LABS: HEMATOCRIT 24.4 % (39.0-51.0)
[2016-10-23 20:58] LABS: REVIEW FLAG FINAL
[2016-10-23] MEDS: cefTRIAXone INJ 1,000 MG in SODIUM CHLORIDE 0.9% INJ 100 ML IV SCH (21:46)
[2016-10-23] MEDS: MULTIVITAMIN INJ 10 ML, FOLIC ACID INJ 1 MG in SODIUM CHLORID 0.9% 500 ML INJ 500 ML IV SCH (21:46)
[2016-10-24] VITALS (8 sets, daily range): BP systolic 107–156; BP diastolic 60–84; PULSE 61–80; RESP 18–20; TEMP 96.1–99.4; O2SAT 94–99
[2016-10-24] MEDS: OCTREOTIDE INJ 500 MCG in SODIUM CHLORID 0.9% 500 ML INJ 499.5 ML IV SCH ×2 (01:10→20:37)
[2016-10-24] MEDS: PANTOPRAZOLE INJ 80 MG in SODIUM CHLORIDE 0.9% INJ 100 ML IV SCH ×3 (01:10→20:35)
[2016-10-24 04:37] LABS: BICARBONATE 24.7 MEQ/L (21.0-32.0); POTASSIUM 3.5 MEQ/L (3.5-5.1)
[2016-10-24] MEDS: THIAMINE INJ 500 MG in SODIUM CHLOR 0.9% 250 ML INJ 250 ML IV SCH ×2 (04:37→12:50)
[2016-10-24 05:08] LABS: AUTOMATED NEUTROPHIL # 3.9 TH/MM3 (1.8-7.7); BASOPHIL % 0.7 % (0.0-2.0); EOSINOPHIL # 0.4 TH/MM3 (0-0.4); EOSINOPHIL % 5.7 % (0.0-4.0); HEMATOCRIT 24.5 % (39.0-51.0); LYMPH % 22.1 % (9.0-44.0); LYMPHOCYTE # 1.4 TH/MM3 (1.0-4.8); MEAN CORPUSCULAR HEMOGLOBIN 32.9 PG (27.0-34.0); MEAN CORPUSCULAR HGB CONC 33.2 % (32.0-36.0); MONO % 10.8 % (0.0-8.0); NEUT % 60.7 % (16.0-70.0); PLATELET COUNT 68 TH/MM3 (150-450); RED BLOOD COUNT 2.47 MIL/MM3 (4.50-5.90); RED CELL DISTRIBUTION WIDTH 15.3 % (11.6-17.2); WHITE BLOOD COUNT 6.5 TH/MM3 (4.0-11.0)
[2016-10-24 05:10] LABS: CALCIUM-PROTEIN CORRECTED 7.9 MG/DL (8.5-10.1)
[2016-10-24 05:21] LABS: HEMO FLAGS AUTO DIFF
[2016-10-24 07:20] LABS: OVALOCYTES 1+ (NORMAL); PLATELET ESTIMATE SMEAR LOW (NORMAL); PLATELET MORPHOLOGY NORMAL (NORMAL); SCAN/DIFF AUTO DIFF CONFIRMED
[2016-10-24] MEDS: DOCUSATE SODIUM 50 MG/SENNA 8.6 MG TAB PO SCH ×2 (09:00→20:44)
[2016-10-24] MEDS: PROPRANOLOL HCL 10 MG TAB PO SCH (09:50)
[2016-10-24] MEDS: SODIUM CHLORIDE 0.9% FLUSH 10 ML FLUSH IV FLUSH SCH ×2 (09:50→20:45)
[2016-10-24] MEDS: SODIUM CHLOR 0.9% 1000 ML INJ 1,000 ML IV SCH (10:37)
--- NOTE | 2016-10-24 13:45 | HHI.GIFU ---
Subjective Remarks Doing well and tolerating liquid diet, no nausea or vomiting. and no melena. Objective Vitals I&O Vital Signs Date Time Temp Pulse Resp B/P (MAP) Pulse Ox O2 Delivery O2 Flow Rate FiO2 10/24/16 12:00 98.5 61 18 112/62 (79) 99 10/24/16 07:44 98.4 71 18 156/84 (108) 98 10/24/16 04:00 98.7 70 20 135/74 (94) 98 10/24/16 00:22 98.5 65 18 137/74 (95) 98 10/23/16 20:38 98.0 66 18 154/82 (106) 97 10/23/16 20:15 81 10/23/16 16:00 96.7 55 18 135/74 (94) 98 10/23/16 15:40 97.3 57 14 125/67 (86) 100 Nasal Cannula 2 10/23/16 15:30 53 14 112/64 (80) 100 Nasal Cannula 2 10/23/16 15:15 58 14 92/58 (69) 100 Nasal Cannula 4 10/23/16 15:12 97.3 59 14 98/60 (73) 99 Nasal Cannula 4 I/O 10/23/16 10/23/16 10/23/16 10/24/16 10/24/16 10/24/16 07:00 15:00 23:00 07:00 15:00 23:00 Intake Total 2182 ml 1399 ml 1315 ml Output Total 1600 ml 1420 ml 1800 ml Balance 2182 ml -1600 ml -21 ml -485 ml Intake Oral 0 ml IV Total 2182 ml 1099 ml 1315 ml Other 300 ml Output Urine Total 1600 ml 1420 ml 1800 ml # Voids 1 # Bowel Movements 1 0 0 Laboratory Laboratory Tests Test 10/23/16 19:35 10/24/16 02:28 Hemoglobin 8.0 8.1 Hematocrit 24.4 24.5 White Blood Count 6.5 Red Blood Count 2.47 Mean Corpuscular Volume 99.0 Mean Corpuscular Hemoglobin 32.9 Mean Corpuscular Hemoglobin Concent 33.2 Red Cell Distribution Width 15.3 Platelet Count 68 Mean Platelet Volume 9.1 Neutrophils (%) (Auto) 60.7 Lymphocytes (%) (Auto) 22.1 Monocytes (%) (Auto) 10.8 Eosinophils (%) (Auto) 5.7 Basophils (%) (Auto) 0.7 Neutrophils # (Auto) 3.9 Lymphocytes # (Auto) 1.4 Monocytes # (Auto) 0.7 Eosinophils # (Auto) 0.4 Basophils # (Auto) 0.0 CBC Comment AUTO DIFF Differential Comment AUTO DIFF CONFIRMED Platelet Estimate LOW Platelet Morphology Comment NORMAL Ovalocytes 1+ Blood Urea Nitrogen 13 Creatinine 0.66 Random Glucose 107 Total Protein 6.0 Calcium Level 7.3 Sodium Level 142 Potassium Level 3.5 Chloride Level 110 Carbon Dioxide Level 24.7 Anion Gap 7 Estimat Glomerular Filtration Rate 124 Protein Corrected Calcium 7.9 Physical Exam HEENT: Pupils round and reactive to light; normocephalic; atraumatic; no jaundice. Throat is clear. NECK: Neck is supple, no JVD, no lymphadenopathy. CHEST: Chest is clear to auscultation and percussion. CARDIAC: Regular rate and rhythm with no murmur gallop or rubs. ABDOMEN: Soft, nondistended, nontender; no hepatosplenomegaly; bowel sounds are present in all four quadrants. EXTREMITIES: No clubbing, cyanosis, or edema. Assessment and Plan Plan ASSESSMENT: - Upper GIB with hematemesis secondary to Varices, S/P banding yesterday. Has been having intermittent hematemesis since Tuesday. Has hx of GIB r/t esophageal varices. Last EGD with band ligation (01/13/15)---> this revealed medium esophageal varices distal esophagus, portal hypertensive gastropathy was found in the entire examined stomach, retroflex views revealed small extension of esophageal varices and of the cardia and fundus. The plan was for repeat EGD with banding in 4 weeks. He is not on any PPIs, but does take propranolol at home. HH dropped from 9.0/27.3----> 7.7/23.0. NPO. Protonix/Octreotide Gtt. - Anemia secondary to acute blood loss. 9.0/27.3----> 7.7/23.0. - Esophageal varices, portal gastropathy. Protonix gtt, Octreotide. Propranolol, rate 71 - Liver cirrhosis secondary to ETOH, Hemochromatosis, HCV. Dx 3-4 years ago. States he drinks occasionally, did have 3 beers on Tuesday. T. Bili 1.0, AST 46 , ALT 40, Alk phosph 153. - Hemochromatosis. Ferritin level, Iron studies. - Chronic hepatitis C, Tx naive. Still drinking ETOH. Not a candidate for tx until he has been ETOH free x 6 months. - Wheezing, coughing. Pt reports hx of COPD per attending - HTN, Anxiety per attending. PLAN: - Diet as tolerated - Protonix Gtt - Octreotide Gtt - Propranolol - CBC, BMP in am - Will need repeat EGD with possible banding in 4-8 weeks. - Complete ETOH cessation - Further recommendations to follow based on results of above Dionisio Glasgow MD Oct 24, 2016 13:45
--- NOTE | 2016-10-24 16:48 | HHI.PR ---
Subjective Remarks tolerated meals well today, no N/V/D. Objective Vital Signs Date Time Temp Pulse Resp B/P (MAP) Pulse Ox O2 Delivery O2 Flow Rate FiO2 10/24/16 16:00 98.6 64 18 107/60 (76) 99 10/24/16 12:00 98.5 61 18 112/62 (79) 99 10/24/16 07:44 98.4 71 18 156/84 (108) 98 10/24/16 04:00 98.7 70 20 135/74 (94) 98 10/24/16 00:22 98.5 65 18 137/74 (95) 98 10/23/16 20:38 98.0 66 18 154/82 (106) 97 10/23/16 20:15 81 I/O 10/23/16 10/23/16 10/23/16 10/24/16 10/24/16 10/24/16 06:59 14:59 22:59 06:59 14:59 22:59 Intake Total 2182 ml 1399 ml 1315 ml 960 ml Output Total 1600 ml 1420 ml 1800 ml 1800 ml Balance 2182 ml -1600 ml -21 ml -485 ml -840 ml Intake Oral 0 ml 960 ml IV Total 2182 ml 1099 ml 1315 ml Other 300 ml Output Urine Total 1600 ml 1420 ml 1800 ml 1800 ml # Voids 1 # Bowel Movements 1 0 0 0 Result Diagram: 10/24/1622710/24/16227 Objective Remarks GENERAL: NAD RESPIRATORY: Unlabored breathing GASTROINTESTINAL: Abdomen soft, non-tender, nondistended. No LE edema A/P Assessment and Plan A/P - Upper GI bleed likely 2/2 varices - stable post EGD w/ banding yesterday today , per GI continuing protonix and octretide drips, propranolol - Anemia secondary to acute blood loss. stable at this time, repeat steph - Esophageal varices, portal gastropathy. - Liver cirrhosis secondary to ETOH, Hemochromatosis, HCV. - Hemochromatosis. - Chronic hepatitis C, Tx naive. - ETOH dependence - librium - HTN, anticipate discharge in next 24 hrs if clear w/ GI. Surya Montero MD Oct 24, 2016 16:48
[2016-10-24] MEDS ORDERED: THIAMINE INJ 500 MG in SODIUM CHLOR 0.9% 250 ML INJ 250 ML IV SCH (20:00)
[2016-10-24] MEDS: MULTIVITAMIN INJ 10 ML, FOLIC ACID INJ 1 MG in SODIUM CHLORID 0.9% 500 ML INJ 500 ML IV SCH (20:36)
[2016-10-24] MEDS: cefTRIAXone INJ 1,000 MG in SODIUM CHLORIDE 0.9% INJ 100 ML IV SCH (21:17)
[2016-10-25 03:57] VITALS: BP 144/70; PULSE 71; RESP 18; TEMP 99; O2SAT 95
[2016-10-25] MEDS: PANTOPRAZOLE INJ 80 MG in SODIUM CHLORIDE 0.9% INJ 100 ML IV SCH ×2 (05:41→16:00)
[2016-10-25 05:53] LABS: AUTOMATED NEUTROPHIL # 4.1 TH/MM3 (1.8-7.7); BASOPHIL # 0.2 TH/MM3 (0-0.2); BASOPHIL % 2.4 % (0.0-2.0); EOSINOPHIL # 0.3 TH/MM3 (0-0.4); EOSINOPHIL % 4.9 % (0.0-4.0); HEMATOCRIT 24.1 % (39.0-51.0); LYMPH % 18.2 % (9.0-44.0); LYMPHOCYTE # 1.2 TH/MM3 (1.0-4.8); MEAN CELL VOLUME 97.6 FL (80.0-100.0); MEAN CORPUSCULAR HEMOGLOBIN 32.9 PG (27.0-34.0); MEAN CORPUSCULAR HGB CONC 33.7 % (32.0-36.0); MONO % 11.7 % (0.0-8.0); NEUT % 62.8 % (16.0-70.0); PLATELET COUNT 70 TH/MM3 (150-450); RED BLOOD COUNT 2.47 MIL/MM3 (4.50-5.90); RED CELL DISTRIBUTION WIDTH 15.8 % (11.6-17.2); WHITE BLOOD COUNT 6.5 TH/MM3 (4.0-11.0)
[2016-10-25 05:56] LABS: HEMO FLAGS AUTO DIFF
[2016-10-25 07:09] LABS: BICARBONATE 26.7 MEQ/L (21.0-32.0); POTASSIUM 3.4 MEQ/L (3.5-5.1)
[2016-10-25 07:28] LABS: PLATELET ESTIMATE SMEAR LOW (NORMAL); PLATELET MORPHOLOGY NORMAL (NORMAL); SCAN/DIFF AUTO DIFF CONFIRMED
[2016-10-25 07:39] LABS: CALCIUM-PROTEIN CORRECTED 7.6 MG/DL (8.5-10.1)
[2016-10-25 08:00] VITALS: BP 136/72; PULSE 60; RESP 17; TEMP 98.3; O2SAT 99
[2016-10-25 09:00] VITALS: PULSE 62
[2016-10-25] MEDS: SODIUM CHLORIDE 0.9% FLUSH 10 ML FLUSH IV FLUSH SCH (09:00)
[2016-10-25] MEDS: DOCUSATE SODIUM 50 MG/SENNA 8.6 MG TAB PO SCH (09:00)
[2016-10-25] MEDS: SODIUM CHLOR 0.9% 1000 ML INJ 1,000 ML IV SCH ×2 (09:05→16:37)
[2016-10-25] MEDS: PROPRANOLOL HCL 10 MG TAB PO SCH (09:05)
[2016-10-25 12:00] VITALS: BP_SYST 115; BP_SYST 144; BP_DIAS 65; BP_DIAS 75; PULSE 68; PULSE 88; RESP 18; RESP 19; TEMP 97.5; TEMP 97.8; O2SAT 97; O2SAT 99
--- NOTE | 2016-10-25 15:43 | HHI.GIFU ---
Subjective Remarks Sitting up on side of bed. No bleeding. Tolerating diet. No n/v. No abdominal pain. States he wants to go home. (Janay Pearson) Objective Vitals I&O Vital Signs Date Time Temp Pulse Resp B/P (MAP) Pulse Ox O2 Delivery O2 Flow Rate FiO2 10/25/16 12:00 97.5 68 18 115/65 (82) 99 10/25/16 09:00 62 10/25/16 08:00 98.3 60 17 136/72 (93) 99 10/25/16 03:57 99.0 71 18 144/70 (94) 95 10/24/16 23:49 99.4 70 18 126/70 (88) 99 10/24/16 20:23 99.2 70 18 112/62 (79) 96 10/24/16 20:00 68 10/24/16 16:00 98.6 64 18 107/60 (76) 99 I/O 10/24/16 10/24/16 10/24/16 10/25/16 10/25/16 10/25/16 07:00 15:00 23:00 07:00 15:00 23:00 Intake Total 1315 ml 960 ml 2329 ml 1210 ml 572 ml Output Total 1800 ml 1800 ml 1250 ml Balance -485 ml -840 ml 2329 ml -40 ml 572 ml Intake Oral 960 ml 360 ml 360 ml IV Total 1315 ml 1969 ml 850 ml 572 ml Output Urine Total 1800 ml 1800 ml 1250 ml # Voids 2 # Bowel Movements 0 0 0 1 Laboratory Laboratory Tests Test 10/25/16 05:16 White Blood Count 6.5 Red Blood Count 2.47 Hemoglobin 8.1 Hematocrit 24.1 Mean Corpuscular Volume 97.6 Mean Corpuscular Hemoglobin 32.9 Mean Corpuscular Hemoglobin Concent 33.7 Red Cell Distribution Width 15.8 Platelet Count 70 Mean Platelet Volume 9.4 Neutrophils (%) (Auto) 62.8 Lymphocytes (%) (Auto) 18.2 Monocytes (%) (Auto) 11.7 Eosinophils (%) (Auto) 4.9 Basophils (%) (Auto) 2.4 Neutrophils # (Auto) 4.1 Lymphocytes # (Auto) 1.2 Monocytes # (Auto) 0.8 Eosinophils # (Auto) 0.3 Basophils # (Auto) 0.2 CBC Comment AUTO DIFF Differential Comment AUTO DIFF CONFIRMED Platelet Estimate LOW Platelet Morphology Comment NORMAL Blood Urea Nitrogen 9 Creatinine 0.71 Random Glucose 104 Total Protein 6.2 Calcium Level 7.1 Sodium Level 142 Potassium Level 3.4 Chloride Level 109 Carbon Dioxide Level 26.7 Anion Gap 6 Estimat Glomerular Filtration Rate 114 Protein Corrected Calcium 7.6 Imaging Last Impressions Chest X-Ray 10/22/16 1648 Signed Impressions: Service Date/Time: Saturday, October 22, 2016 17:02 - CONCLUSION: 1. No acute cardiopulmonary findings. Germain Nolasco MD Head CT 10/22/16 0000 Signed Impressions: Service Date/Time: Saturday, October 22, 2016 17:24 - CONCLUSION: 1. No acute intracranial abnormality. Germain Nolasco MD Physical Exam HEENT: Normocephalic; atraumatic; no jaundice. CHEST: CTA CARDIAC: RRR ABDOMEN: Soft, nondistended, nontender; hepatosplenomegaly; bowel sounds are present in all four quadrants. EXTREMITIES: No clubbing, cyanosis, or edema. NEURO: Alert and oriented x 3 (Janay Pearson) Assessment and Plan Plan ASSESSMENT: - Upper GIB with hematemesis secondary to Varices, Has been having intermittent hematemesis since Tuesday. Has hx of GIB r/t esophageal varices. S/P EGD with band ligation (10/23/16)---> esophageal varices, grade IV, s/p banding. No active bleeding. 8.03/30.1. Protonix/Octreotide Gtt. Tolerated diet. - Anemia secondary to acute blood loss. 8.03/30.1 - Esophageal varices, portal gastropathy. Protonix gtt, Octreotide. Propranolol - Liver cirrhosis secondary to ETOH, Hemochromatosis, HCV. Dx 3-4 years ago. States he drinks occasionally, did have 3 beers on Tuesday. T. Bili 1.0, AST 46 , ALT 40, Alk phosph 153. - Hemochromatosis. Ferritin level, Iron studies. - Chronic hepatitis C, Tx naive. Still drinking ETOH. Not a candidate for tx until he has been ETOH free x 6 months. - Wheezing, coughing. Pt reports hx of COPD per attending - HTN, Anxiety per attending. PLAN: - Diet as tolerated, Low sodium - D/C protonix gtt - D/C Octreotide gtt - Protonix 40mg po BID - Cont. Propranolol - FU LIZZY 2 weeks - Complete ETOH cessation - Will need repeat EGD with possible banding in 4-8 weeks. - Pt seen and examined by Dr. Glasgow and myself and this note is written on his behalf (Janay Pearson) Physician Comments Plan as above, will advance the diet. Will follow up with you. (Dionisio Glasgow MD) Janay Pearson Oct 25, 2016 15:43 Dionisio Glasgow MD Oct 25, 2016 18:17
[2016-10-25] MEDS: OCTREOTIDE INJ 500 MCG in SODIUM CHLORID 0.9% 500 ML INJ 499.5 ML IV SCH (16:00)
--- NOTE | 2016-10-25 16:26 | HHI.DCPOC ---
Discharge Care Plan Diagnosis: (1) Anemia (2) Hematemesis (3) Esophageal varices Additional Problems stomach bleeding/esophageal bleeding Goals to Promote Your Health * To prevent worsening of your condition and complications * To maintain your health at the optimal level DO NOT TAKE NSAIDS OR TYLENOL. Directions to Meet Your Goals Take your medications as prescribed Follow your dietary instruction Follow activity as directed Keep your appointments as scheduled Take your immunizations and boosters as scheduled If your symptoms worsen call your PCP, if no PCP go to Urgent Care Center or Emergency Room Smoking is Dangerous to Your Health. Avoid second hand smoke Call the 24-hour hour crisis hotline for domestic abuse at Surya Montero MD Oct 25, 2016 16:26
[2016-10-25] MEDS ORDERED: PANT40TA3 PO (16:29)
[2016-10-25] MEDS ORDERED: PANTOPRAZOLE SOD 40 MG DELAYED RELEASE TAB PO SCH (21:00)
[2016-10-29] MEDS ORDERED: THIAMINE INJ 100 MG in SODIUM CHLORIDE 0.9% INJ 100 ML IV SCH (20:00)
--- NOTE | 2016-11-23 11:13 | HHI.DS ---
Discharge Summary Admission Date Oct 22, 2016 at 18:39 Discharge Date: Oct 25, 2016 Admitting Diagnosis GI bleed, syncope (1) GI bleed ICD Code: K92.2 - Gastrointestinal hemorrhage, unspecified Status: Acute (2) Syncope ICD Code: R55 - Syncope and collapse Status: Acute (3) Thrombocytopenia ICD Code: D69.6 - Thrombocytopenia Status: Chronic (4) Anemia ICD Code: D64.9 - Anemia, unspecified Status: Acute (5) Hypocalcemia ICD Code: E83.51 - Hypocalcemia Status: Acute (6) Alcohol abuse ICD Code: F10.10 - Alcohol abuse, uncomplicated Status: Acute (7) Tobacco use ICD Code: Z72.0 - Tobacco use Status: Chronic Procedures S/P EGD with band ligation (10/23/16)---> esophageal varices, grade IV, s/p banding. Brief History - From Admission This is a 56-year-old male with a PMH of HTN, Anxiety, Hemochromatosis, Hepatitis C, Cirrhosis, Alcohol Abuse, h/o GI Bleed s/p Esophageal Banding and Tobacco Abuse who was brought to the ER by EMS secondary to complaints of hematemesis with subsequent syncopal episode. Per patient has been feeling unwell x2 days w/ nausea/vomiting, today had episode of hematemesis followed by lightheadedness/dizziness and syncope. Previous admit 01/10-01/13/15 for Hematemesis, s/p EGD 01/13/[address] Miles w/ Esophageal Banding. On arrival , BP 115/64, HR 95, O2 sat 97% on RA, Afebrile. CBC essentially at baseline. Hemoglobin 9.0, previously 8.8 and 01/13/15. Platelets 78, previously 68 on 01/13. Calcium 6.9. Troponin negative. LFTs essentially unremarkable. Lipase normal. INR 1.2. CT Head with no acute findings. CXR negative. Hemoccult positive. GI Consulted by ER physician, currently on Protonix and Octreotide gtt in ER. PE at Discharge No acute distress, unlabored breathing Abdomen is soft, nontender, positive bowel sounds, nondistended Hospital Course Patient was admitted, started on Protonix and octreotide drips. Underwent EGD with findings of grade 4 esophageal varices, underwent banding. Tolerated procedure well and the patient's blood counts remained stable. Patient was tolerating by mouth intake well with no further episodes of melena or bright red blood per rectum. Patient met maximum benefit from hospitalization and was deemed clinically stable for discharge. Pt was extensively counseled on avoiding alcohol and avoiding all NSAID medication. Pt Condition on Discharge: Stable Discharge Disposition: Discharge Home Discharge Time: <= 30 minutes Discharge Instructions DIET: Follow Instructions for: Heart Healthy Diet Activities you can perform: See Additionl Instruction Other Activity Instructions: AVOID DRINKING; DO NOT TAKE NSAIDS INCLUDING but not limited to Advil, aspirin, Aleve, naproxen, ibuprofen. aVOID TYLENOL IF POSSIBLE. Follow up Referrals: [facility] - 2 Weeks with Dionisio Glasgow MD PCP Follow-up - 1 Week New Medications: Pantoprazole (Pantoprazole) 40 Mg Tab 40 MG PO Q12HR for Prevent Stress Ulcers, #60 TAB Continued Medications: Lisinopril (Lisinopril) 2.5 Mg Tab 2.5 MG PO DAILY, #30 TAB 0 Refills Propranolol (Propranolol) 10 Mg Tab 10 MG PO DAILY, #60 TAB 0 Refills Surya Montero MD Nov 23, 2016 11:13
== END 2016-10-25 18:08 | disposition home or self-care (01) | DRG 432 ==
LOC: NEPC 16:21 → NEDA 18:39 → N06A 22:47
PROVIDERS: ADMIT Hospitalist; ATTEND Hospitalist
PROC: 06L34CZ Occlusion of Esophageal Vein with Extraluminal Device, Percutaneous Endoscopic Approach (ICD-10-PCS; principal; 2016-10-23 14:40)
DX: K70.30 Alcoholic cirrhosis of liver without ascites (principal); I85.11 Secondary esophageal varices with bleeding; K92.0 Hematemesis; K76.6 Portal hypertension; D69.6 Thrombocytopenia, unspecified; D62 Acute posthemorrhagic anemia; E83.51 Hypocalcemia; K92.1 Melena; I10 Essential (primary) hypertension; B18.2 Chronic viral hepatitis C; M19.90 Unspecified osteoarthritis, unspecified site; F41.9 Anxiety disorder, unspecified; K21.9 Gastro-esophageal reflux disease without esophagitis; Z72.0 Tobacco use; Z86.14 Personal history of Methicillin resistant Staphylococcus aureus infection; R55 Syncope and collapse; F10.20 Alcohol dependence, uncomplicated; E83.119 Hemochromatosis, unspecified; K31.89 Other diseases of stomach and duodenum; Z80.3 Family history of malignant neoplasm of breast; J44.9 Chronic obstructive pulmonary disease, unspecified; R06.2 Wheezing
CPT/HCPCS: 70450; 71010; 80048; 80053; 80076; 80307; 82550; 82552; 82728; 83036; 83540; 83550; 83690; 83735; 84100; 84155; 84439; 84443; 84484; 85014; 85018; 85025; 85384; 85610; 85730; 86850; 86900; 86901; 93005; 94664; 96374; 96375; C9113; J0610; J0696; J2354; J2405; J3411; J7030; J7040; J7050

== ENCOUNTER 2017-02-20 06:54 | Inpatient (IN) | payer MEDICAID ==
[~2017-02-20] VITALS: Ht 170.2 cm; Wt 77.0 kg
[2017-02-20] VITALS (13 sets, daily range): BP systolic 102–153; BP diastolic 59–91; PULSE 75–101; RESP 16–28; TEMP 97.9–98.8; O2SAT 97–100
[~2017-02-20 06:54] MED LIST changes: -B-COTAB41 PO; +LISI2.5T3 PO; +PANT40TA3 PO; +PROP10TA6 PO; -PROP1TAB66 PO; -PROT40TA PO
[2017-02-20] MEDS ORDERED: PANTOPRAZOLE INJ 80 MG in SODIUM CHLORIDE 0.9% INJ 35 ML IV ONE (07:01)
[2017-02-20] MEDS ORDERED: SODIUM CHLOR 0.9% 1000 ML INJ 1,000 ML IV SCH (07:01)
[2017-02-20] MEDS ORDERED: SODIUM CHLORIDE 0.9% FLUSH 10 ML FLUSH IVF PRN (07:15)
[2017-02-20] MEDS ORDERED: SODIUM CHLOR 0.9% 250 ML INJ 250 ML IV ONE (07:15)
--- NOTE | 2017-02-20 07:15 | PD ---
HPI Chief Complaint: GI Complaint Time Seen by Provider: 07:01 Travel History International Travel<30 days: No Contact w/Intl Traveler<30days: No Traveled to known affect area: No History of Present Illness HPI This is a 56-year-old male with a history of stage IV esophageal varices due to alcohol/hepatitis C/hemochromatosis who presents to the emergency department with hematemesis that started this morning. He says he vomited enough bright red blood to fill 2 large bags and then had some coffee ground emesis. He also has had dark stools since this morning. This occurred twice. He feels lightheaded and dizzy, constant, moderate severity, worse with standing. This is happened to him before and he's been admitted several times over the past year for endoscopy and esophageal banding. PFSH Past Medical History Arthritis: Yes Asthma: No Autoimmune Disease: Yes (PORPHYIA) Blood Disorders: Yes (PORPHYRIA, HEMOCHROMATOSIS) Anxiety: Yes Depression: No Heart Rhythm Problems: No Cancer: No Cardiovascular Problems: Yes High Cholesterol: No Chest Pain: Yes Congestive Heart Failure: No Cirrhosis: Yes COPD: No Cerebrovascular Accident: No Diabetes: No Diminished Hearing: No Endocrine: No Gastrointestinal Disorders: Yes GERD: Yes Genitourinary: No Headaches: Yes Hepatitis: Yes (HEP C) Hiatal Hernia: No Hypertension: Yes Immune Disorder: No Implanted Vascular Access Dvce: No Kidney Stones: No Musculoskeletal: Yes (BAD RIGHT KNEE) Neurologic: Yes Psychiatric: Yes Reproductive: No Respiratory: Yes Immunizations Current: Yes Migraines: No Myocardial Infarction: No Renal Failure: No Seizures: No Sickle Cell Disease: No Sleep Apnea: No Thyroid Disease: No Ulcer: No Past Surgical History Abdominal Surgery: Yes (HERNIA REPAIR 5 MONTHS AGO) AICD: No Arteriovenous Shunt: No Insulin Pump: No Joint Replacement: No Pacemaker: No Other Surgery: Yes Social History Alcohol Use: Yes Tobacco Use: Yes (1 ppd) Substance Use: No Allergies-Medications (Allergen,Severity, Reaction): Coded Allergies: *MDRO Multi-Drug Resistant Organism (Verified Adverse Reaction, Unknown, 02/20/17) Patient reports history of MRSA MRSA PCR Screen positive 11/27/14. Reported Meds & Prescriptions Reported Meds & Active Scripts Active Pantoprazole (Pantoprazole Sodium) 40 Mg Tab 40 Mg PO Q12HR Reported Lisinopril 2.5 Mg Tab 2.5 Mg PO DAILY Propranolol (Propranolol HCl) 10 Mg Tab 10 Mg PO DAILY Review of Systems Except as stated in HPI: all other systems reviewed are Neg Physical Exam Narrative GENERAL: Pale, no acute distress SKIN: Focused skin assessment warm and dry. HEAD: Atraumatic. Normocephalic. EYES: Pupils equal and round. No injection or drainage. ENT: Moist mucous membranes NECK: Trachea midline. CARDIOVASCULAR: Mildly tachycardic. No murmur appreciated. RESPIRATORY: Clear to auscultation. Breath sounds equal bilaterally. GASTROINTESTINAL: Abdomen soft, non-tender, nondistended. MUSCULOSKELETAL: No obvious deformities. NEUROLOGICAL: Awake and alert. No obvious cranial nerve deficits. Moving all extremities. PSYCHIATRIC: Appropriate mood and affect; insight and judgment normal. Data Data Last Documented VS Vital Signs Date Time Temp Pulse Resp B/P (MAP) Pulse Ox O2 Delivery O2 Flow Rate FiO2 02/20/17 08:08 91 18 125/74 (91) 98 Room Air 02/20/17 06:57 98.8 Orders Orders Complete Blood Count With Diff (02/20/17 07:01) Comprehensive Metabolic Panel (02/20/17 07:01) Prothrombin Time / Inr (Pt) (02/20/17 07:01) Act Partial Throm Time (Ptt) (02/20/17 07:01) Type And Screen (02/20/17 07:01) Ecg Monitoring (02/20/17 07:01) Iv Access Insert/Monitor (02/20/17 07:01) Oximetry (02/20/17 07:01) Sodium Chlor 0.9% 1000 Ml Inj (Ns 1000 M (02/20/17 07:01) Sodium Chloride 0.9% Flush (Ns Flush) (02/20/17 07:15) Sodium Chlorid 0.9%... W/Octreotide Inj (02/20/17 07:01) Sodium Chloride 0.9... W/Pantoprazole In (02/20/17 07:01) Sodium Chloride 0.9... W/Pantoprazole In (02/20/17 07:01) Red Blood Cells (Rbc) (02/20/17 07:11) Sodium Chlor 0.9% 250 Ml Inj (Ns 250 Ml (02/20/17 07:15) Labs Laboratory Tests Test 02/20/17 07:10 White Blood Count 6.2 TH/MM3 Red Blood Count 3.66 MIL/MM3 Hemoglobin 9.5 GM/DL Hematocrit 30.0 % Mean Corpuscular Volume 82.0 FL Mean Corpuscular Hemoglobin 26.0 PG Mean Corpuscular Hemoglobin Concent 31.7 % Red Cell Distribution Width 23.8 % Platelet Count 91 TH/MM3 Mean Platelet Volume 9.7 FL Neutrophils (%) (Auto) 65.0 % Lymphocytes (%) (Auto) 19.6 % Monocytes (%) (Auto) 11.9 % Eosinophils (%) (Auto) 2.4 % Basophils (%) (Auto) 1.1 % Neutrophils # (Auto) 4.1 TH/MM3 Lymphocytes # (Auto) 1.2 TH/MM3 Monocytes # (Auto) 0.7 TH/MM3 Eosinophils # (Auto) 0.1 TH/MM3 Basophils # (Auto) 0.1 TH/MM3 CBC Comment AUTO DIFF Differential Comment AUTO DIFF CONFIRMED Platelet Estimate LOW Platelet Morphology Comment NORMAL Ovalocytes 1+ Prothrombin Time 13.5 SEC Prothromb Time International Ratio 1.3 RATIO Activated Partial Thromboplast Time 25.2 SEC Blood Urea Nitrogen 16 MG/DL Creatinine 0.77 MG/DL Random Glucose 189 MG/DL Total Protein 6.8 GM/DL Albumin 2.4 GM/DL Calcium Level 7.9 MG/DL Alkaline Phosphatase 116 U/L Aspartate Amino Transf (AST/SGOT) 74 U/L Alanine Aminotransferase (ALT/SGPT) 55 U/L Total Bilirubin 0.7 MG/DL Sodium Level 140 MEQ/L Potassium Level 3.9 MEQ/L Chloride Level 107 MEQ/L Carbon Dioxide Level 23.0 MEQ/L Anion Gap 10 MEQ/L Estimat Glomerular Filtration Rate 104 ML/MIN [facility] Medical Decision Making Medical Screen Exam Complete: Yes Emergency Medical Condition: Yes Interpretation(s) Afebrile, mild tachycardia, normotensive Anemia similar to prior Platelet count is 91 INR is 1.3 PTT is 25 Electrolytes are reassuring Albumin is 2.4 Differential Diagnosis Esophageal varices, gastritis, peptic ulcer disease, anemia Narrative Course This is a 56-year-old male who presents to the emergency department with upper GI bleed that started this morning. He has a history of stage IV esophageal varices in the setting of liver disease. Here in the emergency department he was slightly tachycardic. He is placed in a monitor and an IV was established. Labs are obtained which demonstrated hemoglobin of 9.5. Large-bore IV access was established. He was started on Protonix and octreotide. Blood was typed and crossed. He'll be admitted for GI evaluation. Diagnosis Primary Impression: GI bleed Qualified Codes: K92.2 - Gastrointestinal hemorrhage, unspecified Admitting Information Admitting Physician Requests: Admit Odalis Curry MD Feb 20, 2017 07:15
[2017-02-20 07:34] LABS: AUTOMATED NEUTROPHIL # 4.1 TH/MM3 (1.8-7.7); BASOPHIL # 0.1 TH/MM3 (0-0.2); BASOPHIL % 1.1 % (0.0-2.0); EOSINOPHIL # 0.1 TH/MM3 (0-0.4); EOSINOPHIL % 2.4 % (0.0-4.0); LYMPH % 19.6 % (9.0-44.0); LYMPHOCYTE # 1.2 TH/MM3 (1.0-4.8); MEAN CORPUSCULAR HGB CONC 31.7 % (32.0-36.0); MONO % 11.9 % (0.0-8.0); PLATELET COUNT 91 TH/MM3 (150-450); RED BLOOD COUNT 3.66 MIL/MM3 (4.50-5.90); RED CELL DISTRIBUTION WIDTH 23.8 % (11.6-17.2); WHITE BLOOD COUNT 6.2 TH/MM3 (4.0-11.0)
[2017-02-20 07:42] LABS: HEMO FLAGS AUTO DIFF
[2017-02-20 07:49] LABS: APTT (PATIENT) 25.2 SEC (24.3-30.1); INTERNATIONAL NORMALIZED RATIO 1.3 RATIO; PROTHROMBIN TIME - PATIENT 13.5 SEC (9.8-11.6)
[2017-02-20] MEDS: OCTREOTIDE INJ 500 MCG in SODIUM CHLORID 0.9% 500 ML INJ 500 ML IV SCH (07:50)
[2017-02-20] MEDS: PANTOPRAZOLE INJ 80 MG in SODIUM CHLORIDE 0.9% INJ 100 ML IV SCH ×2 (07:50→19:44)
[2017-02-20 07:54] LABS: ALKALINE PHOSPHATASE 116 U/L (45-117); TOTAL BILIRUBIN ADULT 0.7 MG/DL (0.2-1.0)
[2017-02-20 08:04] LABS: ALT (GPT) 55 U/L (12-78); ANION GAP 10 MEQ/L (5-15); AST (GOT) 74 U/L (15-37); BLOOD UREA NITROGEN 16 MG/DL (7-18); CHLORIDE 107 MEQ/L (98-107); GLOMERULAR FILTRATION RATE 104 ML/MIN (>89); POTASSIUM 3.9 MEQ/L (3.5-5.1); SODIUM (NA) 140 MEQ/L (136-145)
[2017-02-20 08:30] LABS: OVALOCYTES 1+ (NORMAL); PLATELET ESTIMATE SMEAR LOW (NORMAL); PLATELET MORPHOLOGY NORMAL (NORMAL); SCAN/DIFF AUTO DIFF CONFIRMED
[2017-02-20] MEDS ORDERED: SODIUM CHLORIDE 0.9% FLUSH 10 ML FLUSH IV FLUSH PRN (09:15)
[2017-02-20] MEDS ORDERED: BISACODYL 10 MG SUPP RECTAL PRN (09:15)
[2017-02-20] MEDS ORDERED: LORazepam 1 MG TAB PO PRN (09:15)
[2017-02-20] MEDS ORDERED: LORazepam 2 MG TAB PO PRN (09:15)
[2017-02-20] MEDS ORDERED: LACTULOSE SYRUP 20 GM/30 ML CUP PO PRN (09:15)
[2017-02-20] MEDS ORDERED: NALOXONE HCL 0.4 MG/ML AMP IV PUSH PRN (09:15)
[2017-02-20] MEDS ORDERED: MAGNESIUM HYDROXIDE SUSP 30 ML CUP PO PRN (09:15)
[2017-02-20] MEDS ORDERED: HALOPERIDOL LACTATE 5 MG/ML AMP IM PRN (09:15)
[2017-02-20] MEDS ORDERED: FLUMAZENIL 0.5 MG/5 ML VIAL IV PUSH PRN (09:15)
[2017-02-20] MEDS ORDERED: ONDANSETRON HCL 4 MG/2 ML VIAL IVP PRN (09:15)
[2017-02-20] MEDS ORDERED: SENNOSIDES 8.6 MG TAB PO PRN (09:15)
[2017-02-20] MEDS ORDERED: ACETAMINOPHEN 325 MG TAB PO PRN ×2 (09:15)
[2017-02-20] MEDS: SODIUM CHLOR 0.9% 1000 ML INJ 1,000 ML IV SCH ×2 (10:23→20:03)
--- NOTE | 2017-02-20 11:05 | PD.CONS ---
HPI History of Present Illness This is a 56 year old male who presents to the ED with c/o hematemesis that started this morning at 2 am. States he vomited multiple times. Reports significant amount of emesis with bright red blood, and then later was coffee- ground. Reports darks stools this morning. Patient reports lightheadedness and dizziness. PMH is significant for stage IV esophageal varices due to alcohol/ hepatitis C/hemochromatosis, portal gastropathy, porphyria, and prior GI bleeding. Patient has had several similar episodes of these symptoms in the past year, requiring endoscopy with esophageal banding. Patient reports that he last had EGD with banding 3 weeks ago at [place]. Patient states he drank about 5 rum and cokes at a [employer] party on Tuesday. States that otherwise, he generally drinks alcohol "occasionally." Denies abdominal pain or GERD. Patient was diagnosed with liver cirrhosis about 3-4 years ago and reports that he has never had treatment for Hepatitis C. HH noted to be 9.5/30 in ED. Pulse 91, blood pressure 109/70. 2 units of PRBCs have been ordered. PFSH Past Medical History HTN Anxiety Hemochromatosis Hepatitis C, Tx naive Liver Cirrhosis Alcohol Abuse Hx GIB Esophageal varices Portal gastropathy Past Surgical History EGD Hernia Repair Coded Allergies: *MDRO Multi-Drug Resistant Organism (Verified Adverse Reaction, Unknown, 02/20/17) Patient reports history of MRSA MRSA PCR Screen positive 11/27/14. Medications Current Medications Medications (Trade) Dose Ordered Sig/Meera Route PRN Reason Start Time Stop Time Status Last Admin Dose Admin Octreotide Acetate 500 mcg/ Sodium Chloride 500.5 ml @ 50 mls/hr Q10H1M IV 02/20/17 07:01 02/20/17 07:50 Pantoprazole Sodium 80 mg/ Sodium Chloride 100 ml @ 10 mls/hr Q10H IV 02/20/17 07:01 02/20/17 07:50 Sodium Chloride 250 ml @ 15 mls/hr ONCE ONCE IV 02/20/17 07:15 02/20/17 23:54 Sodium Chloride (NS Flush) 2 ml UNSCH PRN IV FLUSH FLUSH AFTER USING IV ACCESS 02/20/17 09:15 Sodium Chloride (NS Flush) 2 ml BID IV FLUSH 02/20/17 21:00 Sodium Chloride 1,000 ml @ 100 mls/hr Q10H IV 02/20/17 09:01 02/20/17 10:23 Folic Acid (Folate) 1 mg DAILY PO 02/21/17 09:00 02/26/17 08:59 Thiamine HCl (Vitamin B1) 100 mg DAILY PO 02/21/17 09:00 Multivitamins/ Minerals Therapeutic (Theragran M Tab) 1 tab DAILY PO 02/21/17 09:00 02/26/17 08:59 Flumazenil (Romazicon Inj) 0.2 mg Q1M PRN IV PUSH SEE LABEL COMMENTS 02/20/17 09:15 Lorazepam (Ativan) 1 mg Q4H PRN PO CIWA 8 - 10 02/20/17 09:15 Lorazepam (Ativan) 2 mg Q2H PRN PO CIWA 11-14 02/20/17 09:15 Haloperidol Lactate (Haldol Inj) 2 mg Q15M PRN IM SEE LABEL COMMENTS 02/20/17 09:15 Acetaminophen (Tylenol) 650 mg Q4H PRN PO TEMP > 100.4 02/20/17 09:15 Ondansetron HCl (Zofran Inj) 4 mg Q6H PRN IVP NAUSEA OR VOMITING 02/20/17 09:15 Acetaminophen (Tylenol) 650 mg Q6H PRN PO PAIN SCALE 1 TO 2 02/20/17 09:15 Naloxone HCl (Narcan Inj) 0.4 mg UNSCH PRN IV PUSH SEE LABEL COMMENTS 02/20/17 09:15 Magnesium Hydroxide (Milk Of Magnesia Liq) 30 ml Q12H PRN PO Mild constipation 02/20/17 09:15 Sennosides (Senokot) 17.2 mg Q12H PRN PO Moderate constipation 02/20/17 09:15 Bisacodyl (Dulcolax Supp) 10 mg DAILY PRN RECTAL SEVERE CONSITIPATION 02/20/17 09:15 Lactulose (Lactulose Liq) 30 ml DAILY PRN PO SEVERE CONSITIPATION 02/20/17 09:15 Family History Mother had breast cancer. Social History ETOH, occasional alcohol, reports he had 5 rum and cokes on Tuesday Tobacco, 1.5 PPD No illicit drug use Review of Systems Constitutional: COMPLAINS OF: Dizziness, DENIES: Diaphoretic episodes, Fatigue , Fever, Weight gain, Weight loss, Chills, Change in appetite, Night Sweats Endocrine: DENIES: Polydipsia, Polyuria Eyes: DENIES: Blurred vision, Photosensitivity, Double Vision Ears, nose, mouth, throat: DENIES: Hearing loss, Vertigo, Oral lesions, Throat pain, Hoarseness Respiratory: DENIES: Cough, Wheezing, Hemoptysis, Sputum production, Shortness of breath Cardiovascular: DENIES: Chest pain, Palpitations, Syncope, Lower Extremity Edema, Orthopnea, Claudication Gastrointestinal: COMPLAINS OF: Black stools, Vomiting, Hematemesis, DENIES: Abdominal pain, Bloody stools, Constipation, Diarrhea, Nausea, Difficulty Swallowing, Anorexia, Odynophagia, Swelling of Abdomen, Heartburn Genitourinary: DENIES: Urinary frequency, Urinary incontinence, Urgency, Hematuria, Dysuria, Nocturia Musculoskeletal: DENIES: Joint pain, Muscle aches, Stiffness, Joint Swelling, Back pain, Neck pain Integumentary: DENIES: Abnormal pigmentation, Nail changes, Pruritus, Rash, Jaundice Hematologic/lymphatic: DENIES: Bruising, Lymphadenopathy Immunologic/allergic: DENIES: Eczema, Urticaria Neurologic: DENIES: Abnormal gait, Headache, Localized weakness, Paresthesias Psychiatric: DENIES: Anxiety, Confusion, Mood changes, Depression, Agitation, Suicidal Ideation GI Exam Vitals I&O Vital Signs Date Time Temp Pulse Resp B/P (MAP) Pulse Ox O2 Delivery O2 Flow Rate FiO2 02/20/17 10:22 02/20/17 09:29 97 21 02/20/17 09:14 91 16 109/70 (83) 97 Room Air 02/20/17 08:08 91 18 125/74 (91) 98 Room Air 02/20/17 07:06 101 18 97 Room Air 02/20/17 06:57 98.8 97 18 102/59 (73) 97 I/O 02/19/17 02/19/17 02/19/17 02/20/17 02/20/17 02/20/17 07:00 15:00 23:00 07:00 15:00 23:00 Intake Total 1035 ml Balance 1035 ml Intake IV Total 1035 ml Laboratory Test 02/20/17 07:10 White Blood Count 6.2 TH/MM3 Red Blood Count 3.66 MIL/MM3 Hemoglobin 9.5 GM/DL Hematocrit 30.0 % Mean Corpuscular Volume 82.0 FL Mean Corpuscular Hemoglobin 26.0 PG Mean Corpuscular Hemoglobin Concent 31.7 % Red Cell Distribution Width 23.8 % Platelet Count 91 TH/MM3 Mean Platelet Volume 9.7 FL Neutrophils (%) (Auto) 65.0 % Lymphocytes (%) (Auto) 19.6 % Monocytes (%) (Auto) 11.9 % Eosinophils (%) (Auto) 2.4 % Basophils (%) (Auto) 1.1 % Neutrophils # (Auto) 4.1 TH/MM3 Lymphocytes # (Auto) 1.2 TH/MM3 Monocytes # (Auto) 0.7 TH/MM3 Eosinophils # (Auto) 0.1 TH/MM3 Basophils # (Auto) 0.1 TH/MM3 CBC Comment AUTO DIFF Differential Comment AUTO DIFF CONFIRMED Platelet Estimate LOW Platelet Morphology Comment NORMAL Ovalocytes 1+ Prothrombin Time 13.5 SEC Prothromb Time International Ratio 1.3 RATIO Activated Partial Thromboplast Time 25.2 SEC Blood Urea Nitrogen 16 MG/DL Creatinine 0.77 MG/DL Random Glucose 189 MG/DL Total Protein 6.8 GM/DL Albumin 2.4 GM/DL Calcium Level 7.9 MG/DL Alkaline Phosphatase 116 U/L Aspartate Amino Transf (AST/SGOT) 74 U/L Alanine Aminotransferase (ALT/SGPT) 55 U/L Total Bilirubin 0.7 MG/DL Sodium Level 140 MEQ/L Potassium Level 3.9 MEQ/L Chloride Level 107 MEQ/L Carbon Dioxide Level 23.0 MEQ/L Anion Gap 10 MEQ/L Estimat Glomerular Filtration Rate 104 ML/MIN Physical Examination HEENT: Normocephalic; atraumatic; no jaundice. NECK: Neck is supple CHEST: CTA CARDIAC: RRR with no murmur gallop or rubs. ABDOMEN: Soft, nondistended, nontender; no hepatosplenomegaly; bowel sounds are present in all four quadrants. EXTREMITIES: No clubbing, cyanosis, or edema. SKIN: Normal; no rash; no jaundice. 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 Assessment and Plan Plan ASSESSMENT: - Upper GIB, with hematemesis. Most likely secondary to esophageal varices, portal gastropathy. + liver cirrhosis secondary to ETOH/hemochromatosis, HCV. Patient started having hematemesis this morning at 2 am. Noted black stools this morning. Patient reports he drank about 5 rum and cokes on 02/18. Has history of GIB related to esophageal varices. Patient reports last EGD with banding was 3 weeks ago at [place]. HH 9.5. 2 units of PRBCs have been ordered. - Chronic hepatis C, has not had treatment. Continues to drink alcohol. Not candidate for treatment at this time. - Hemochromatosis. PLAN: - EGD with possible band ligation today - Obtain consents - NPO - Protonix Gtt - Octreotide Gtt - Monitor HH, transfuse as needed - ETOH cessation strongly recommended - Supportive care - Further recommendations to follow based on results of above Patient seen and examined by Dr. Grace and myself and this not is written on his behalf. Yanira Gonzales Feb 20, 2017 11:05
--- NOTE | 2017-02-20 12:53 | HHI.HP ---
HPI Service [facility] Primary Care Physician Suraj Juárez, Admission Diagnosis upper gi bleed Diagnoses: Chief Complaint: Hematemesis Travel History International Travel<30 Days: No Contact w/Intl Traveler <30 Da: No Traveled to Known Affected Are: No History of Present Illness This is a 56-year-old male with a history of liver cirrhosis, variceal bleed, hepatitis C, alcohol abuse, hemochromatosis, porphyria, GERD, hypertension and arthritis. States he was doing well until this morning when he vomited bright red blood twice amounting to 2 L per EMS followed by coffee-ground emesis. He also had one dark stool. Denies abdominal pain but was dizzy and weak. No chest pain, diaphoresis and syncope. Denies aspirin and NSAIDs use. In the emergency department, he was noted to be tachycardic improved after 1 L fluid bolus. Patient seen in ICU awaiting EGD. No further GI bleed since admission. He also has chronic dyspnea related to wheezing. He is an active smoker and has been using his late mother's nebulizer. No fever, chills and cough. All other systems reviewed negative Review of Systems Except as stated in HPI: all other systems reviewed are Neg Past Family Social History Past Medical History As previously mentioned Past Surgical History EGD with banding of the esophageal varices Hernia repair Reported Medications Propranolol, Protonix and lisinopril Allergies: Coded Allergies: *MDRO Multi-Drug Resistant Organism (Verified Adverse Reaction, Unknown, 02/20/17) Patient reports history of MRSA MRSA PCR Screen positive 11/27/14. Family History Denies liver or colon cancer Social History Occasional alcohol use but had too much to drink this past Tuesday Smokes over a pack per day No illicit drug use Physical Exam Vital Signs Vital Signs Date Time Temp Pulse Resp B/P (MAP) Pulse Ox O2 Delivery O2 Flow Rate FiO2 02/20/17 10:22 02/20/17 09:29 97 21 02/20/17 09:14 91 16 109/70 (83) 97 Room Air 02/20/17 08:08 91 18 125/74 (91) 98 Room Air 02/20/17 07:06 101 18 97 Room Air 02/20/17 06:57 98.8 97 18 102/59 (73) 97 Physical Exam GENERAL: This is a well-nourished, well-developed patient, in no apparent distress. SKIN: No rashes, ecchymoses or lesions. Cool and dry. HEAD: Atraumatic. Normocephalic. No temporal or scalp tenderness. EYES: Pupils equal round and reactive. Extraocular motions intact. No scleral icterus. No injection or drainage. ENT: Nose without bleeding, purulent drainage or septal hematoma. Throat without erythema, tonsillar hypertrophy or exudate. Uvula midline. Airway patent. NECK: Trachea midline. No JVD or lymphadenopathy. Supple, nontender, no meningeal signs. CARDIOVASCULAR: Regular rate and rhythm without murmurs, gallops, or rubs. RESPIRATORY: Clear to auscultation. Breath sounds equal bilaterally. No wheezes , rales, or rhonchi. GASTROINTESTINAL: Abdomen soft, non-tender, nondistended. No guarding. MUSCULOSKELETAL: Extremities without clubbing, cyanosis, or edema. No joint tenderness, effusion, or edema noted. No calf tenderness. Negative Homans sign bilaterally. NEUROLOGICAL: Awake and alert. Cranial nerves II through XII intact. Motor and sensory grossly within normal limits. Five out of 5 muscle strength in all muscle groups. Normal speech. Laboratory Laboratory Tests Test 02/20/17 07:10 White Blood Count 6.2 Red Blood Count 3.66 Hemoglobin 9.5 Hematocrit 30.0 Mean Corpuscular Volume 82.0 Mean Corpuscular Hemoglobin 26.0 Mean Corpuscular Hemoglobin Concent 31.7 Red Cell Distribution Width 23.8 Platelet Count 91 Mean Platelet Volume 9.7 Neutrophils (%) (Auto) 65.0 Lymphocytes (%) (Auto) 19.6 Monocytes (%) (Auto) 11.9 Eosinophils (%) (Auto) 2.4 Basophils (%) (Auto) 1.1 Neutrophils # (Auto) 4.1 Lymphocytes # (Auto) 1.2 Monocytes # (Auto) 0.7 Eosinophils # (Auto) 0.1 Basophils # (Auto) 0.1 CBC Comment AUTO DIFF Differential Comment AUTO DIFF CONFIRMED Platelet Estimate LOW Platelet Morphology Comment NORMAL Ovalocytes 1+ Prothrombin Time 13.5 Prothromb Time International Ratio 1.3 Activated Partial Thromboplast Time 25.2 Blood Urea Nitrogen 16 Creatinine 0.77 Random Glucose 189 Total Protein 6.8 Albumin 2.4 Calcium Level 7.9 Alkaline Phosphatase 116 Aspartate Amino Transf (AST/SGOT) 74 Alanine Aminotransferase (ALT/SGPT) 55 Total Bilirubin 0.7 Sodium Level 140 Potassium Level 3.9 Chloride Level 107 Carbon Dioxide Level 23.0 Anion Gap 10 Estimat Glomerular Filtration Rate 104 Result Diagram: 02/20/1770902/20/1710 Caprini VTE Risk Assessment Caprini VTE Risk Assessment: No/Low Risk (score <= 1) Caprini Risk Assessment Model Point Value = 1 Point Value = 2 Point Value = 3 Point Value = 5 Age 41-60 Minor surgery BMI > 25 kg/m2 Swollen legs Varicose veins or History of unexplained or recurrent spontaneous Oral contraceptives or hormone replacement Sepsis (< 1 month) Serious lung disease, including pneumonia (< 1 month) Abnormal pulmonary function Acute myocardial infarction Congestive heart failure (< 1 month) History of inflammatory bowel disease Medical patient at bed rest Age 61-74 Arthroscopic surgery Major open surgery (> 45 min) Laparoscopic surgery (> 45 min) Malignancy Confined to bed (> 72 hours) Immobilizing plaster cast Central venous access Age >= 75 History of VTE Family history of VTE Factor V Leiden Prothrombin [id number] Lupus anticoagulant Anticardiolipin antibodies Elevated serum homocysteine Heparin-induced thrombocytopenia Other congenital or acquired thrombophilia Stroke (< 1 month) Elective arthroplasty Hip, pelvis, or leg fracture Acute spinal cord injury (< 1 month) Prophylaxis Regimen Total Risk Factor Score Risk Level Prophylaxis Regimen 0-1 Low Early ambulation 2 Moderate Order ONE of the following: *Sequential Compression Device (SCD) *Heparin 5000 units SQ BID 3-4 Higher Order ONE of the following medications: *Heparin 5000 units SQ TID *Enoxaparin/Lovenox 40 mg SQ daily (WT < 150 kg, CrCl > 30 mL/min) *Enoxaparin/Lovenox 30 mg SQ daily (WT < 150 kg, CrCl > 10-29 mL/min) *Enoxaparin/Lovenox 30 mg SQ BID (WT < 150 kg, CrCl > 30 mL/min) AND/OR *Sequential Compression Device (SCD) 5 or more Highest Order ONE of the following medications: *Heparin 5000 units SQ TID (Preferred with Epidurals) *Enoxaparin/Lovenox 40 mg SQ daily (WT < 150 kg, CrCl > 30 mL/min) *Enoxaparin/Lovenox 30 mg SQ daily (WT < 150 kg, CrCl > 10-29 mL/min) *Enoxaparin/Lovenox 30 mg SQ BID (WT < 150 kg, CrCl > 30 mL/min) AND *Sequential Compression Device (SCD) Assessment and Plan Problem List: (1) GI bleed ICD Code: K92.2 - Gastrointestinal hemorrhage, unspecified Status: Acute Assessment and Plan This is a 56-year-old male who presented to the emergency room with hematemesis and melena. GI bleed with some hemodynamic instability. History of variceal bleed status post banding 3 weeks ago. Patient will be kept in the ICU awaiting endoscopy continue nothing by mouth, Protonix and octreotide drips. Monitor blood counts keep hemoglobin at least 8. Anemia secondary to acute blood loss. As above. Alcohol abuse. Counseled. CIWA protocol. COPD. Has chronic wheezing. States continue nebulizations. Tobacco cessation. Does not want nicotinic patch Chronic medical conditions of liver cirrhosis, hepatitis C, alcohol abuse, hemochromatosis, porphyria, GERD, hypertension and arthritis. Continue outpatient medications as appropriate DVT prophylaxis with SCD Discussed Condition With Patient, family, ER and nursing staff Problem Qualifiers (1) GI bleed: Qualified Codes: K92.2 - Gastrointestinal hemorrhage, unspecified Brenton Salazar MD Feb 20, 2017 12:53
[2017-02-20] MEDS ORDERED: RESP: ALBUTEROL 2.5 MG/3 ML NEB (PRN) INH (13:00)
[2017-02-20] MEDS ORDERED: SIMETHICONE SUSP DROPS 40 MG/0.6 ML 30 ML BTL PO ONE (15:10)
--- NOTE | 2017-02-20 15:23 | HHI.GIFU ---
Subjective Remarks EGD performed for hematemesis. There was a prominent varix with a nipple on it suggestive of the bleeding site. This was banded. Three other bands were applied to the same varix more proximally and to one other varix. Stomach and duodenum did not have any bleeding lesions, but there was portal hypertensive gastropathy. Objective Vitals I&O Vital Signs Date Time Temp Pulse Resp B/P (MAP) Pulse Ox O2 Delivery O2 Flow Rate FiO2 02/20/17 12:00 97.9 89 22 114/68 (83) 97 02/20/17 12:00 100 02/20/17 10:22 02/20/17 09:29 97 21 02/20/17 09:14 91 16 109/70 (83) 97 Room Air 02/20/17 08:08 91 18 125/74 (91) 98 Room Air 02/20/17 07:06 101 18 97 Room Air 02/20/17 06:57 98.8 97 18 102/59 (73) 97 I/O 02/19/17 02/19/17 02/19/17 02/20/17 02/20/17 02/20/17 07:00 15:00 23:00 07:00 15:00 23:00 Intake Total 1035 ml Balance 1035 ml Intake IV Total 1035 ml Laboratory Laboratory Tests Test 02/20/17 07:10 White Blood Count 6.2 Red Blood Count 3.66 Hemoglobin 9.5 Hematocrit 30.0 Mean Corpuscular Volume 82.0 Mean Corpuscular Hemoglobin 26.0 Mean Corpuscular Hemoglobin Concent 31.7 Red Cell Distribution Width 23.8 Platelet Count 91 Mean Platelet Volume 9.7 Neutrophils (%) (Auto) 65.0 Lymphocytes (%) (Auto) 19.6 Monocytes (%) (Auto) 11.9 Eosinophils (%) (Auto) 2.4 Basophils (%) (Auto) 1.1 Neutrophils # (Auto) 4.1 Lymphocytes # (Auto) 1.2 Monocytes # (Auto) 0.7 Eosinophils # (Auto) 0.1 Basophils # (Auto) 0.1 CBC Comment AUTO DIFF Differential Comment AUTO DIFF CONFIRMED Platelet Estimate LOW Platelet Morphology Comment NORMAL Ovalocytes 1+ Prothrombin Time 13.5 Prothromb Time International Ratio 1.3 Activated Partial Thromboplast Time 25.2 Blood Urea Nitrogen 16 Creatinine 0.77 Random Glucose 189 Total Protein 6.8 Albumin 2.4 Calcium Level 7.9 Alkaline Phosphatase 116 Aspartate Amino Transf (AST/SGOT) 74 Alanine Aminotransferase (ALT/SGPT) 55 Total Bilirubin 0.7 Sodium Level 140 Potassium Level 3.9 Chloride Level 107 Carbon Dioxide Level 23.0 Anion Gap 10 Estimat Glomerular Filtration Rate 104 Physical Exam HEENT: Pupils round and reactive to light; normocephalic; atraumatic; no jaundice. Throat is clear. NECK: Neck is supple, no JVD, no lymphadenopathy. CHEST: Chest is clear to auscultation and percussion. CARDIAC: Regular rate and rhythm with no murmur gallop or rubs. ABDOMEN: Soft, nondistended, nontender; no hepatosplenomegaly; bowel sounds are present in all four quadrants. EXTREMITIES: No clubbing, cyanosis, or edema. SKIN: Normal; no rash; no jaundice. RACK PUNCHER: No focal deficits; alert and oriented times three. Assessment and Plan Plan ASSESSMENT: - Upper GIB, with hematemesis. Most likely secondary to esophageal varices, portal gastropathy. + liver cirrhosis secondary to ETOH/hemochromatosis, HCV. Patient started having hematemesis this morning at 2 am. Noted black stools this morning. Patient reports he drank about 5 rum and cokes on 02/18. Has history of GIB related to esophageal varices. Patient reports last EGD with banding was 3 weeks ago at [place]. 9.530. 2 units of PRBCs have been ordered. - Chronic hepatis C, has not had treatment. Continues to drink alcohol. Not candidate for treatment at this time. - Hemochromatosis. - EGD with banding performed today. Bleed was from esophageal varix. PLAN: - Stop Protonix Gtt when current bag runs out - Octreotide Gtt stop in AM - Monitor HH, transfuse as needed - ETOH cessation strongly recommended - Supportive care - Further recommendations to follow based on results of above Jericho Grace MD Feb 20, 2017 15:23
[2017-02-20] MEDS: RESP: ALBUTEROL 2.5 MG/IPRATROPIUM 0.5 MG NEB (SCH) INH ×2 (15:33→20:11)
[2017-02-20] MEDS ORDERED: DO NOT ADM ANY ANTICOAGULANT DRUGS PRN (16:45)
[2017-02-20 16:54] LABS: REVIEW FLAG FINAL
[2017-02-20] MEDS ORDERED: ALUMINUM/MAGNESIUM/SIMETH 30 ML CUP PO ONE (22:15)
[2017-02-20] MEDS: SODIUM CHLORIDE 0.9% FLUSH 10 ML FLUSH IV FLUSH SCH (22:52)
[2017-02-20 23:37] LABS: HEMATOCRIT 27.6 % (39.0-51.0); REVIEW FLAG FINAL
[2017-02-21] VITALS (14 sets, daily range): BP systolic 110–159; BP diastolic 59–83; PULSE 67–81; RESP 16–23; TEMP 97.8–98.7; O2SAT 96–100
[2017-02-21 03:12] LABS: AUTOMATED NEUTROPHIL # 4.5 TH/MM3 (1.8-7.7); BASOPHIL % 0.3 % (0.0-2.0); EOSINOPHIL % 0.1 % (0.0-4.0); HEMATOCRIT 26.3 % (39.0-51.0); LYMPH % 10.6 % (9.0-44.0); LYMPHOCYTE # 0.6 TH/MM3 (1.0-4.8); MEAN CELL VOLUME 81.4 FL (80.0-100.0); MEAN CORPUSCULAR HEMOGLOBIN 26.1 PG (27.0-34.0); MONO % 6.3 % (0.0-8.0); NEUT % 82.7 % (16.0-70.0); PLATELET COUNT 66 TH/MM3 (150-450); RED BLOOD COUNT 3.23 MIL/MM3 (4.50-5.90); RED CELL DISTRIBUTION WIDTH 23.5 % (11.6-17.2); WHITE BLOOD COUNT 5.4 TH/MM3 (4.0-11.0)
[2017-02-21 03:13] LABS: HEMO FLAGS AUTO DIFF
[2017-02-21 03:24] LABS: BICARBONATE 26.4 MEQ/L (21.0-32.0); POTASSIUM 4.2 MEQ/L (3.5-5.1)
[2017-02-21 03:37] LABS: PLATELET ESTIMATE SMEAR LOW (NORMAL); PLATELET MORPHOLOGY NORMAL (NORMAL); SCAN/DIFF AUTO DIFF CONFIRMED
[2017-02-21] MEDS: PANTOPRAZOLE INJ 80 MG in SODIUM CHLORIDE 0.9% INJ 100 ML IV SCH (04:02)
[2017-02-21] MEDS: OCTREOTIDE INJ 500 MCG in SODIUM CHLORID 0.9% 500 ML INJ 500 ML IV SCH (04:02)
[2017-02-21] MEDS: SODIUM CHLOR 0.9% 1000 ML INJ 1,000 ML IV SCH ×2 (04:03→09:55)
[2017-02-21] MEDS: RESP: ALBUTEROL 2.5 MG/IPRATROPIUM 0.5 MG NEB (SCH) INH ×4 (07:26→21:46)
[2017-02-21] MEDS ORDERED: PILL SPLITTER OTHER PRN (09:45)
[2017-02-21] MEDS: THIAMINE HCL 100 MG TAB PO SCH (09:54)
[2017-02-21] MEDS: MULTIVITAMINS/MINERALS THERAPEUTIC TAB PO SCH (09:54)
[2017-02-21] MEDS: FOLIC ACID 1 MG TAB PO SCH (09:55)
[2017-02-21] MEDS: SODIUM CHLORIDE 0.9% FLUSH 10 ML FLUSH IV FLUSH SCH ×2 (09:56→20:55)
[2017-02-21] MEDS: PROPRANOLOL HCL 10 MG TAB PO SCH (09:58)
--- NOTE | 2017-02-21 11:58 | HHI.GIFU ---
Subjective Remarks Awake resting in bed Having some mild epigastric pain, Tolerating clear liquids Afebrile (Tracey Cespedes) Objective Vitals I&O Vital Signs Date Time Temp Pulse Resp B/P (MAP) Pulse Ox O2 Delivery O2 Flow Rate FiO2 02/21/17 07:27 100 Nasal Cannula 2.00 02/21/17 06:00 74 02/21/17 04:00 77 02/21/17 04:00 98.2 77 18 148/81 (103) 99 02/21/17 02:00 72 02/21/17 00:00 98.4 73 20 152/78 (102) 98 02/21/17 00:00 73 02/20/17 22:00 80 02/20/17 20:11 99 Nasal Cannula 2.00 02/20/17 20:00 98.0 84 18 153/91 (111) 99 02/20/17 20:00 84 02/20/17 19:00 79 21 100 02/20/17 19:00 79 02/20/17 18:00 75 20 100 02/20/17 18:00 75 02/20/17 16:01 78 19 114/63 (80) 100 Nasal Cannula 2 02/20/17 16:00 77 02/20/17 16:00 98.1 77 28 131/73 (92) 100 02/20/17 15:45 77 19 115/61 (79) 100 Nasal Cannula 2 02/20/17 15:35 98.2 78 19 130/79 (96) 100 Nasal Cannula 2 02/20/17 14:00 84 02/20/17 12:00 97.9 89 22 114/68 (83) 97 02/20/17 12:00 100 I/O 02/20/17 02/20/17 02/20/17 02/21/17 02/21/17 02/21/17 07:00 15:00 23:00 07:00 15:00 23:00 Intake Total 1035 ml 2040 ml 1300 ml Output Total 750 ml 1400 ml Balance 1035 ml 1290 ml -100 ml Intake Oral 240 ml 200 ml IV Total 1035 ml 1100 ml 1100 ml Other 700 ml Output Urine Total 750 ml 1400 ml # Bowel Movements 0 0 Laboratory Laboratory Tests Test 02/20/17 12:04 02/20/17 16:10 02/20/17 23:05 12/18/17 03:00 Nasal Screen MRSA (PCR) MRSA DETECTED Hemoglobin 8.6 9.0 8.4 Hematocrit 27.0 27.6 26.3 White Blood Count 5.4 Red Blood Count 3.23 Mean Corpuscular Volume 81.4 Mean Corpuscular Hemoglobin 26.1 Mean Corpuscular Hemoglobin Concent 32.0 Red Cell Distribution Width 23.5 Platelet Count 66 Mean Platelet Volume 8.9 Neutrophils (%) (Auto) 82.7 Lymphocytes (%) (Auto) 10.6 Monocytes (%) (Auto) 6.3 Eosinophils (%) (Auto) 0.1 Basophils (%) (Auto) 0.3 Neutrophils # (Auto) 4.5 Lymphocytes # (Auto) 0.6 Monocytes # (Auto) 0.3 Eosinophils # (Auto) 0.0 Basophils # (Auto) 0.0 CBC Comment AUTO DIFF Differential Comment AUTO DIFF CONFIRMED Platelet Estimate LOW Platelet Morphology Comment NORMAL Blood Urea Nitrogen 13 Creatinine 0.62 Random Glucose 172 Calcium Level 7.5 Sodium Level 140 Potassium Level 4.2 Chloride Level 109 Carbon Dioxide Level 26.4 Anion Gap 5 Estimat Glomerular Filtration Rate 134 Physical Exam HEENT: Pupils round and reactive to light; normocephalic; atraumatic; no jaundice. Throat is clear. NECK: Neck is supple, no JVD, no lymphadenopathy. CHEST: Chest is clear to auscultation and percussion. CARDIAC: Regular rate and rhythm with no murmur gallop or rubs. ABDOMEN: Soft, round, nondistended, mild epigastric pain no hepatosplenomegaly ; bowel sounds are active EXTREMITIES: No clubbing, cyanosis, or edema. SKIN: Normal; no rash; no jaundice. MEDICAL INSURANCE CODER: No focal deficits; alert and oriented times three. (Tracey Cespedes) Assessment and Plan Plan ASSESSMENT: - Upper GIB, with hematemesis.secondary to esophageal varices, portal gastropathy. + liver cirrhosis secondary to ETOH/hemochromatosis, HCV. Patient started having hematemesis this morning at 2 am. Patient reports he drank about 5 rum and cokes on 02/18. Has history of GIB related to esophageal varices. Patient reports last EGD with banding was 3 weeks ago at [facility], second EGD done 02-20, with varices banding. Patient tolerated procedure well - Chronic hepatis C, has not had treatment. Continues to drink alcohol. Not candidate for treatment at this time. - Hemochromatosis. - EGD with banding 02/20/17. Patient tolerated procedure well. Still has some mild epigastric pain, tolerating by mouth fluids this a.m. PLAN: - Protonix Gtt, DC'd this a.m. - Octreotide Gtt DC'd this a.m. - PPI by mouth - Monitor HH, transfuse as needed - ETOH cessation strongly recommended - Supportive care - Further recommendations to follow based on results of above, GI bleeding is stable, patient could transition out to regular room from GI perspective Patient seen for Dr. Glasgow, this note was done on his behalf (Tracey Cespedes) Physician Comments Agree with above. Transfer out of the ICU, will advance diet as tolerated. Further recommendations to follow. (Dionisio Glasgow MD) Tracey Cespedes Feb 21, 2017 11:58 Dinoisio Glasgow MD Feb 21, 2017 15:56
--- NOTE | 2017-02-21 13:08 | HHI.PR ---
Subjective Remarks Follow-up GI bleed. No further GI bleeding. He is doing okay. Has not been out of bed. Discussed with RN, GI to advance diet and cleared patient for discharge. Stable blood counts. Objective Vitals Vital Signs Date Time Temp Pulse Resp B/P (MAP) Pulse Ox O2 Delivery O2 Flow Rate FiO2 02/21/17 12:00 98.6 67 23 150/81 (104) 99 02/21/17 12:00 67 02/21/17 10:00 81 02/21/17 08:00 98.7 77 17 159/83 (108) 97 02/21/17 08:00 77 02/21/17 07:27 100 Nasal Cannula 2.00 02/21/17 06:00 74 02/21/17 04:00 77 02/21/17 04:00 98.2 77 18 148/81 (103) 99 02/21/17 02:00 72 02/21/17 00:00 98.4 73 20 152/78 (102) 98 02/21/17 00:00 73 02/20/17 22:00 80 02/20/17 20:11 99 Nasal Cannula 2.00 02/20/17 20:00 98.0 84 18 153/91 (111) 99 02/20/17 20:00 84 02/20/17 19:00 79 21 100 02/20/17 19:00 79 02/20/17 18:00 75 20 100 02/20/17 18:00 75 02/20/17 16:01 78 19 114/63 (80) 100 Nasal Cannula 2 02/20/17 16:00 77 02/20/17 16:00 98.1 77 28 131/73 (92) 100 02/20/17 15:45 77 19 115/61 (79) 100 Nasal Cannula 2 02/20/17 15:35 98.2 78 19 130/79 (96) 100 Nasal Cannula 2 02/20/17 14:00 84 I/O 02/20/17 02/20/17 02/20/17 02/21/17 02/21/17 02/21/17 07:00 15:00 23:00 07:00 15:00 23:00 Intake Total 1035 ml 2040 ml 1300 ml Output Total 750 ml 1400 ml Balance 1035 ml 1290 ml -100 ml Intake Oral 240 ml 200 ml IV Total 1035 ml 1100 ml 1100 ml Other 700 ml Output Urine Total 750 ml 1400 ml # Bowel Movements 0 0 Result Diagram: 02/21/1729902/21/17299 Objective Remarks GENERAL: This is a well-nourished, well-developed patient, in no apparent distress. SKIN: No rashes, ecchymoses or lesions. Cool and dry. CARDIOVASCULAR: Regular rate and rhythm without murmurs, gallops, or rubs. RESPIRATORY: Clear to auscultation. Breath sounds equal bilaterally. No wheezes , rales, or rhonchi. GASTROINTESTINAL: Abdomen soft, non-tender, nondistended. No guarding. MUSCULOSKELETAL: Extremities without clubbing, cyanosis, or edema. No joint tenderness, effusion, or edema noted. No calf tenderness. Negative Homans sign bilaterally. NEUROLOGICAL: Awake and alert. Cranial nerves II through XII intact. Motor and sensory grossly within normal limits. Five out of 5 muscle strength in all muscle groups. Normal speech. Procedures EGD with banding. Bleed was from esophageal varix. A/P Problem List: (1) GI bleed ICD Code: K92.2 - Gastrointestinal hemorrhage, unspecified Status: Acute Assessment and Plan This is a 56-year-old male who presented to the emergency room with hematemesis and melena. GI bleed with improved hemodynamics. History of variceal bleed status post banding 3 weeks ago. Repeat EGD EGD with banding. Bleed was from esophageal varix. Stable with no recurrence of bleed. Discontinue Protonix and Sandostatin drips. Advanced diet currently on liquid diet per GI. Monitor blood counts keep hemoglobin at least 8. Anemia secondary to acute blood loss. As above. Alcohol abuse. Counseled. CIWA protocol. No evidence of withdrawal COPD. Has chronic wheezing. Improved continue nebulizations. Tobacco cessation. Does not want nicotinic patch Chronic medical conditions of liver cirrhosis, hepatitis C, alcohol abuse, hemochromatosis, porphyria, GERD, hypertension and arthritis. Continue outpatient medications as appropriate DVT prophylaxis with SCD Discharge Planning Is clinically improved we'll transfer to medical floor. May be discharged to home when cleared by GI Problem Qualifiers (1) GI bleed: Qualified Codes: K92.2 - Gastrointestinal hemorrhage, unspecified Brenton Salazar MD Feb 21, 2017 13:08
[2017-02-21 13:47] LABS: HEMATOCRIT 27.9 % (39.0-51.0); REVIEW FLAG FINAL
[2017-02-21] MEDS ORDERED: VENTAER INH (14:50)
[2017-02-21] MEDS ORDERED: IPRA17I INH (14:50)
--- NOTE | 2017-02-21 14:51 | HHI.DCPOC ---
Discharge Care Plan Diagnosis: (1) GI bleed Your Health Problems Are: Difficulty with ADL Exercise Tolerance Goals to Promote Your Health * To prevent worsening of your condition and complications * To maintain your health at the optimal level Directions to Meet Your Goals Take your medications as prescribed Follow your dietary instruction Follow activity as directed Keep your appointments as scheduled Take your immunizations and boosters as scheduled If your symptoms worsen call your PCP, if no PCP go to Urgent Care Center or Emergency Room Smoking is Dangerous to Your Health. Avoid second hand smoke Call the 24-hour hour crisis hotline for domestic abuse at Brenton Salazar MD Feb 21, 2017 14:51
[2017-02-21 16:50] LABS: HEMATOCRIT 26.6 % (39.0-51.0)
[2017-02-21 16:55] LABS: REVIEW FLAG FINAL
[2017-02-21] MEDS ORDERED: ZOLPIDEM TARTRATE 5 MG TAB PO PRN (17:30)
[2017-02-21] MEDS: PANTOPRAZOLE SOD 40 MG DELAYED RELEASE TAB PO SCH (20:48)
[2017-02-21 22:55] LABS: HEMATOCRIT 24.7 % (39.0-51.0)
[2017-02-21 22:57] LABS: REVIEW FLAG FINAL
[2017-02-22 03:50] VITALS: BP 97/55; PULSE 71; RESP 16; TEMP 98.2; O2SAT 96
[2017-02-22 04:18] VITALS: PULSE 70
[2017-02-22 06:23] VITALS: O2SAT 96
[2017-02-22 07:17] LABS: HEMATOCRIT 25.1 % (39.0-51.0)
[2017-02-22 07:31] LABS: REVIEW FLAG FINAL
[2017-02-22 08:00] VITALS: BP 139/72; PULSE 67; RESP 20; TEMP 98.7; O2SAT 97
[2017-02-22] MEDS: RESP: ALBUTEROL 2.5 MG/IPRATROPIUM 0.5 MG NEB (SCH) INH ×2 (08:03→12:07)
[2017-02-22 08:05] VITALS: O2SAT 97
[2017-02-22] MEDS: THIAMINE HCL 100 MG TAB PO SCH (08:32)
[2017-02-22] MEDS: FOLIC ACID 1 MG TAB PO SCH (08:32)
[2017-02-22] MEDS: PROPRANOLOL HCL 10 MG TAB PO SCH (08:32)
[2017-02-22] MEDS: MULTIVITAMINS/MINERALS THERAPEUTIC TAB PO SCH (08:33)
[2017-02-22] MEDS: PANTOPRAZOLE SOD 40 MG DELAYED RELEASE TAB PO SCH (08:33)
[2017-02-22] MEDS: SODIUM CHLORIDE 0.9% FLUSH 10 ML FLUSH IV FLUSH SCH (08:33)
[2017-02-22] MEDS ORDERED: LISINOPRIL 5 MG TAB PO SCH (09:00)
[2017-02-22 11:30] VITALS: BP 102/60; PULSE 66; RESP 20; TEMP 99.4; O2SAT 97
[2017-02-22] MEDS ORDERED: BACTOIN EACH NARE (12:50)
--- NOTE | 2017-02-22 12:53 | HHI.DS ---
Discharge Summary Admission Date Feb 20, 2017 at 09:02 Discharge Date: Feb 22, 2017 Admitting Diagnosis upper gi bleed (1) GI bleed ICD Code: K92.2 - Gastrointestinal hemorrhage, unspecified Diagnosis: Principal Status: Acute Procedures EGD with banding. Bleed was from esophageal varix. Brief History - From Admission This is a 56-year-old male with a history of liver cirrhosis, variceal bleed, hepatitis C, alcohol abuse, hemochromatosis, porphyria, GERD, hypertension and arthritis. States he was doing well until this morning when he vomited bright red blood twice amounting to 2 L per EMS followed by coffee-ground emesis. He also had one dark stool. Denies abdominal pain but was dizzy and weak. No chest pain, diaphoresis and syncope. Denies aspirin and NSAIDs use. In the emergency department, he was noted to be tachycardic improved after 1 L fluid bolus. Patient seen in ICU awaiting EGD. No further GI bleed since admission. He also has chronic dyspnea related to wheezing. He is an active smoker and has been using his late mother's nebulizer. No fever, chills and cough. All other systems reviewed negative CBC/BMP: 02/22/17 0610 02/21/17 0300 Significant Findings Laboratory Tests Test 02/20/17 07:10 02/20/17 12:04 02/20/17 16:10 02/20/17 23:05 Red Blood Count 3.66 MIL/MM3 (4.50-5.90) Hemoglobin 9.5 GM/DL (13.0-17.0) 8.6 GM/DL (13.0-17.0) 9.0 GM/DL (13.0-17.0) Hematocrit 30.0 % (39.0-51.0) 27.0 % (39.0-51.0) 27.6 % (39.0-51.0) Mean Corpuscular Hemoglobin 26.0 PG (27.0-34.0) Mean Corpuscular Hemoglobin Concent 31.7 % (32.0-36.0) Red Cell Distribution Width 23.8 % (11.6-17.2) Platelet Count 91 TH/MM3 (150-450) Monocytes (%) (Auto) 11.9 % (0.0-8.0) Platelet Estimate LOW (NORMAL) Ovalocytes 1+ (NORMAL) Prothrombin Time 13.5 SEC (9.8-11.6) Random Glucose 189 MG/DL (74-106) Albumin 2.4 GM/DL (3.4-5.0) Calcium Level 7.9 MG/DL (8.5-10.1) Aspartate Amino Transf (AST/SGOT) 74 U/L (15-37) Test 02/21/17 03:00 02/21/17 13:22 02/21/17 15:41 02/21/17 22:37 Red Blood Count 3.23 MIL/MM3 (4.50-5.90) Hemoglobin 8.4 GM/DL (13.0-17.0) 8.9 GM/DL (13.0-17.0) 8.4 GM/DL (13.0-17.0) 8.2 GM/DL (13.0-17.0) Hematocrit 26.3 % (39.0-51.0) 27.9 % (39.0-51.0) 26.6 % (39.0-51.0) 24.7 % (39.0-51.0) Mean Corpuscular Hemoglobin 26.1 PG (27.0-34.0) Red Cell Distribution Width 23.5 % (11.6-17.2) Platelet Count 66 TH/MM3 (150-450) Neutrophils (%) (Auto) 82.7 % (16.0-70.0) Lymphocytes # (Auto) 0.6 TH/MM3 (1.0-4.8) Platelet Estimate LOW (NORMAL) Random Glucose 172 MG/DL (74-106) Calcium Level 7.5 MG/DL (8.5-10.1) Chloride Level 109 MEQ/L (98-107) Test 02/22/17 06:10 Hemoglobin 8.3 GM/DL (13.0-17.0) Hematocrit 25.1 % (39.0-51.0) PE at Discharge GENERAL: This is a well-nourished, well-developed patient, in no apparent distress. SKIN: No rashes, ecchymoses or lesions. Cool and dry. CARDIOVASCULAR: Regular rate and rhythm without murmurs, gallops, or rubs. RESPIRATORY: Clear to auscultation. Breath sounds equal bilaterally. No wheezes , rales, or rhonchi. GASTROINTESTINAL: Abdomen soft, non-tender, nondistended. No guarding. MUSCULOSKELETAL: Extremities without clubbing, cyanosis, or edema. No joint tenderness, effusion, or edema noted. No calf tenderness. Negative Homans sign bilaterally. NEUROLOGICAL: Awake and alert. Cranial nerves II through XII intact. Motor and sensory grossly within normal limits. Five out of 5 muscle strength in all muscle groups. Normal speech. Hospital Course This is a 56-year-old male who presented to the emergency room with hematemesis and melena. GI bleed with improved hemodynamics. History of variceal bleed status post banding 3 weeks ago. Repeat EGD with banding. Bleed was from esophageal varix. Stable with no recurrence of bleed. Discontinued Protonix and Sandostatin drips. Advanced diet. Monitor blood counts keep hemoglobin at least 8. Anemia secondary to acute blood loss. As above. Alcohol abuse. Counseled. [facility] protocol. No evidence of withdrawal COPD. Has chronic wheezing. Improved continue nebulizations. Tobacco cessation. Does not want nicotinic patch Chronic medical conditions of liver cirrhosis, hepatitis C, alcohol abuse, hemochromatosis, porphyria, GERD, hypertension and arthritis. Continue outpatient medications as appropriate uptitrate BB if possible +MRSA in the nares. Bactroban ointment for 7 days DVT prophylaxis with SCD Pt Condition on Discharge: Stable Discharge Disposition: Discharge Home Discharge Time: > 30 minutes Discharge Instructions DIET: Follow Instructions for: Heart Healthy Diet Activities you can perform: Regular-No Restrictions Activities to Avoid: Driving Follow up Referrals: Gastroenterology - 1 Week PCP Follow-up - 1 Week New Medications: Albuterol 18 GM Inh (Ventolin Hfa 18 GM Inh) 90 Mcg/Act Aer 2 PUFF INH Q4H PRN for SHORTNESS OF BREATH, #1 INHALER 0 Refills Ipratropium HFA 12.9 GM Inh (Atrovent HFA 12.9 GM Inh) 17 Mcg/Actuation Aer 2 PUFF INH Q6HR for Breathing Treatment, #1 INHALER 0 Refills Mupirocin Nasal Oint (Bactroban Nasal Oint) 2% Oint 1 APPLIC EACH NARE BID for Infection, #1 TUBE total of 7 days Single-use tubes. Continued Medications: Lisinopril (Lisinopril) 2.5 Mg Tab 2.5 MG PO DAILY, #30 TAB 0 Refills Pantoprazole (Pantoprazole) 40 Mg Tab 40 MG PO Q12HR for Prevent Stress Ulcers, #60 TAB Propranolol (Propranolol) 10 Mg Tab 10 MG PO DAILY, #60 TAB 0 Refills Brenton Salazar MD Feb 22, 2017 12:53
[2017-02-22] MEDS ORDERED: MUPIROCIN 2% OINT 1 APPLIC/GM SYR EACH NARE SCH (13:00)
== END 2017-02-22 14:26 | disposition home or self-care (01) | DRG 432 ==
LOC: NEPC 06:54 → NEDA 09:02 → HIMW 10:07 → N04B 02-21 16:19
PROVIDERS: ADMIT Internal Medicine; ATTEND Internal Medicine
PROC: 06L38CZ Occlusion of Esophageal Vein with Extraluminal Device, Via Natural or Artificial Opening Endoscopic (ICD-10-PCS; principal; 2017-02-21)
DX: K70.30 Alcoholic cirrhosis of liver without ascites (principal); I85.11 Secondary esophageal varices with bleeding; E80.20 Unspecified porphyria; K76.6 Portal hypertension; D62 Acute posthemorrhagic anemia; F10.10 Alcohol abuse, uncomplicated; F17.210 Nicotine dependence, cigarettes, uncomplicated; J44.9 Chronic obstructive pulmonary disease, unspecified; E83.119 Hemochromatosis, unspecified; K21.9 Gastro-esophageal reflux disease without esophagitis; I10 Essential (primary) hypertension; M19.90 Unspecified osteoarthritis, unspecified site; B19.20 Unspecified viral hepatitis C without hepatic coma; F41.9 Anxiety disorder, unspecified; R00.0 Tachycardia, unspecified; K31.89 Other diseases of stomach and duodenum
CPT/HCPCS: 80048; 80053; 85014; 85018; 85025; 85610; 85730; 86850; 86900; 86901; 86920; 87641; 94640; 96361; 96365; 96368; C9113; J2354; J7030; J7040